=== PATIENT | male | born 1950 | race Caucasian/White ===

== ENCOUNTER 2016-05-29 08:11 | Inpatient (IN) | payer BC ==
[2016-05-05 15:10] VITALS: BMI 35.0
--- NOTE | 2016-05-05 15:51 | PAT Medication Instructions ---
Service Date May 05, 2016. Current Home Medication List Doxycycline Hyclate (Doxycycline Hyclate), 100 MG PO BID Ibuprofen (Advil), 400 MG PO PRN Meloxicam (Mobic), 15 MG PO QAM Psyllium (Metamucil Powder), 1 PACK PO QPM Medication Instructions For Your Scheduled Surgery - Hold the following medications the morning of surgery: Doxycycline Hyclate (Doxycycline Hyclate), 100 MG PO BID Ibuprofen (Advil), 400 MG PO PRN (not told to stop by surgeon) Meloxicam (Mobic), 15 MG PO QAM (not told to stop by surgeon) - Take the following medications as scheduled the night before surgery: Psyllium (Metamucil Powder), 1 PACK PO QPM Doxycycline Hyclate (Doxycycline Hyclate), 100 MG PO BID If you have any questions please call us at [phone] or [phone] ( [place]) or [phone]
[2016-05-05 16:20] LABS: BASO % 0.5 %; BASO ABS # 0.03 K/uL (0-0.2); COMPLETE YES; HEMATOCRIT 42.3 % (42-52); IG% 0.2 %; LYMPH % 24.4 %; MEAN CELL VOLUME 91.6 fL (80-100); MEAN CORPUSCULAR HEMOGLOBIN 31.2 pg (25-34); MEAN PLATELET VOLUME 10.7 fL (7.4-10.4); MONO % 10.2 %; NEUT % 60.7 %; PLATELET COUNT 153 K/uL (130-400); RED BLOOD COUNT 4.62 M/uL (4.7-6.1); WHITE BLOOD COUNT 6.56 K/uL (4.8-10.8)
--- NOTE | 2016-05-05 16:20 | DIAGNOSTIC IMAGING REPORT ---
CHEST PREADMISSION(PA/LAT) CLINICAL HISTORY: Preoperative evaluation. COMPARISON STUDY: Chest CT December 19, 2013 FINDINGS: No pneumothorax or pleural effusion is present. There is no consolidation. There is no evidence of pulmonary edema. Cardiomediastinal silhouette is unremarkable. Linear left lower lung opacity is suggestive of atelectasis. IMPRESSION: No acute cardiopulmonary findings. Electronically signed by: Sorin Gotti M.D. 05/05/2016 4:18 PM
[2016-05-05 16:24] LABS: URINE APPEARANCE CLEAR (CLEAR); URINE BILIRUBIN NEG (NEG); URINE COLOR YELLOW; URINE NITRITE NEG (NEG); URINE SPECIFIC GRAVITY 1.026 (1.000-1.030); UROBILINOGEN NEG (NEG)
[2016-05-05 16:29] LABS: MANUAL MICROSCOPIC REQUIRED? NO; REVIEW REQ? NO
[2016-05-05 16:34] LABS: PROTHROMBIN TIME (PATIENT) 10.7 SECONDS (9.0-12.0)
[2016-05-05 16:54] LABS: BUN/CREATININE RATIO 21.7 (10-20); CALCIUM 8.8 mg/dl (8.5-10.1); CREATININE 0.95 mg/dl (0.60-1.40); POTASSIUM 4.2 mmol/L (3.5-5.1)
[2016-05-06 06:52] LABS: ESTIMATED AVERAGE GLUCOSE 105 mg/dl; HA1C FLAG Normal (Normal)
--- NOTE | 2016-05-28 09:06 | HISTORY & PHYSICAL EXAMINATION ---
DATE OF ADMISSION: 05/29/2016 CHIEF COMPLAINT: Right knee pain. HISTORY OF PRESENT ILLNESS: The patient is a 66-year-old gentleman with known osteoarthritis about his bilateral knees, right worse than left. He has had previous corticosteroid as well as viscosupplementation injections. 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 He continues to have pain and disability with activities of daily living and now desires to proceed with right total knee arthroplasty. PAST MEDICAL HISTORY: Denies. PAST SURGICAL HISTORY: Colon resection secondary to diverticulitis, hip replacement by Dr. Gold, hernia repair, hand surgery. MEDICATIONS: Doxycycline 100 mg twice daily for rosacea. ALLERGIES: No known drug allergies. SOCIAL HISTORY AND REVIEW OF SYSTEMS: Noncontributory. PHYSICAL EXAMINATION: GENERAL: Well-nourished, well-developed male who appears his stated age. HEENT: Normocephalic, atraumatic, extraocular movements intact, oropharynx pink and moist. NECK: Supple without adenopathy. LUNGS: Clear to auscultation bilaterally. HEART: Regular rate and rhythm. ABDOMEN: Soft, nontender, nondistended. EXTREMITIES: Upper extremities are within normal limits. Right knee has a varus alignment. He complains primarily of medial compartment pain. His range of motion is approximately 0-125 degrees. He has mild crepitus with range of motion. X-RAYS: X-rays were reviewed. He has a varus aligned knee. He has [id number] arthritis of the medial compartment with complete loss of joint space. There are moderate degenerative changes about the patellofemoral joint with osteophytes as well. ASSESSMENT: Right knee degenerative joint disease. PLAN: Risks versus benefits were discussed. Consent was obtained. We will proceed with right total knee arthroplasty upon preoperative workup and medical clearance. The patient's primary care physician is Dr. Kim from [facility] in [place].
[2016-05-29] VITALS (9 sets, daily range): BP systolic 120–184; BP diastolic 74–102; PULSE 76–93; TEMP 36.4–36.7; O2SAT 93–98; Ht 170.2 cm; Wt 103.6 kg
[~2016-05-29] VITALS: Ht 170.2 cm; Wt 103.6 kg
[~2016-05-29 08:11] MED LIST: ACETAMINOPHEN 500 MG TAB PO SCH; BUPIVACAINE 0.25% 30 ML VIAL ONE; BUPIVACAINE 0.5 % 5 MG/1 ML PF 10ML VIAL ONE; CEFAZOLIN 2000 MG/60 ML D5W 60 ML IV SCH; CeleBREX 200 MG CAP PO SCH; DEXAMETHASONE 4 MG TAB PO SCH; DOXY1TAB6 PO; FAMOTIDINE 20 MG TAB PO SCH; GABAPENTIN 300 MG CAP PO SCH; IBUP-1050 PO; LACTATED RINGER'S 1000ML 1,000 ML IV SCH; LACTATED RINGER'S 1000ML 500 ML IV ONE; MELO7.5T5 PO; METOCLOPRAMIDE HCL 10 MG TAB PO SCH; OXYCODONE HCL 10 MG TABCR (OXYCONTIN) PO SCH; PSYL55.43 PO; ROPIVACAINE 5MG/ML 30 ML 150 MG, BUPIVACAINE/EPINEPHR 0.5% MPF 30 ML, KETOROLAC TROMETH... INFIL SCH
--- NOTE | 2016-05-29 08:33 | History & Physical Bridge Note ---
H&P Re-Evaluation Bridge Note: I have examined the patient, reviewed the History & Physical and in the interval since the performance of the History & Physical I have noted the following changes of clinical significance: No changes noted
[2016-05-29] MEDS ORDERED: MIDAZOLAM HCL 1 MG/ML 2ML VIAL ONE ×2 (08:42→08:43)
[2016-05-29] MEDS ORDERED: FENTANYL CITRATE INJ 50 MCG/1 ML 2 ML VIAL ONE (08:43)
[2016-05-29] MEDS ORDERED: NURSING VERBAL MED ORDER ONE (08:45)
[2016-05-29] MEDS: TRANEXAMIC ACID INJ 1,000 MG in SODIUM CHLORIDE 0.9% 100ML 100 ML IV SCH ×2 (09:00→09:28)
[2016-05-29] MEDS ORDERED: ORTHO JOINT ANESTHETIC ONE (09:01)
[2016-05-29] MEDS ORDERED: LACTATED RINGER'S 1000ML 1,000 ML IV PRN (09:22)
[2016-05-29] MEDS ORDERED: ONDANSETRON INJ 2 MG/ML 2 ML VIAL IV PRN (09:30)
[2016-05-29] MEDS ORDERED: FENTANYL CITRATE INJ 50 MCG/1 ML 2 ML VIAL IV PRN (09:30)
[2016-05-29] MEDS ORDERED: PROPOFOL IV EMULSION 10 MG/ML 20 ML VIAL IV ONE (10:14)
[2016-05-29] MEDS ORDERED: POVIDONE-IODINE OP SOLN 30 ML BTL TOP ONE (11:00)
--- NOTE | 2016-05-29 11:00 | [facility] Post Operative Brief Note ---
Immediate Operative Summary Operative Date May 29, 2016. Pre-Operative Diagnosis Right Knee Degenerative Joint Disease Post-Operative Diagnosis Right Knee Degenerative Joint Disease Procedure(s) Performed Orthalign Right Total Knee Arthroplasty Cemented Surgeon Dr. Rd Peterson Commercial Decorator Surgeon(s) Mio Salcido PA-C Estimated Blood Loss 20ml Findings severe OA Specimens A. Right Knee Bone and Tissue
[2016-05-29] MEDS ORDERED: BACITRACIN 50000 UNIT VIAL IR ONE (11:04)
--- NOTE | 2016-05-29 11:30 | OPERATIVE REPORT ---
REVISED REPORT DATE OF OPERATION: 05/29/2016 PREOPERATIVE DIAGNOSIS: OrthAlign Marie total knee, right. POSTOPERATIVE DIAGNOSIS: Same. SURGEON: Dr. Peterson. SENIOR SALES OPERATIONS ANALYST: Mio Salcido PA-C. ANESTHESIA: Spinal. COMPLICATIONS: None. Following induction of adequate spinal anesthesia, the patient's right leg was prepped and draped in usual sterile manner. The limb was exsanguinated with elevation and tourniquet was inflated to 350 mmHg. Longitudinal incision was reopened. Subcutaneous tissue was sharply dissected. Electrocautery was used for hemostasis. Median parapatellar incision was made. The patella was everted and the knee was flexed. ACL and PCL were removed and a medial face of the tibia was cleared of soft tissue using a Bovie and a Avalos. The tibial alignment guide for the OrthAlign alignment jig was placed in the appropriate position. It was set for slope and varus and valgus. The proximal tibial cut was made. This bone fragment was removed. Attention was turned to the femur where a spiral pin was placed in the femoral canal at the appropriate point. The OrthAlign guide was place until the femoral cutting guide was in the appropriate position. The OrthAlign guide and pins were removed and the distal femoral cut was made. This was sized, a size 5 was chosen the size to be used. Chamfer cuts were made. The notch cut was made erring slightly laterally intentionally. The lamina extractions technician was used to expose the posterior reaches of the knee, where both medial and lateral menisci were removed. Additional bone in the lateral aspects of the tibia was removed using an oscillating saw. The trial femoral component was impacted into position. The 5 fit very nicely. A blunt Hohmann was used to present the proximal tibia into the knee and a sharp Hohmann was utilized to expose the lateral aspect of the femur. The tibial baseplate, size 4, was chosen the size to be used. A punch and a mallet was used to create the slots for the tibial fins and a drill was used for the universal baseplate stubby stem. Trial reduction was carried out and size 16 poly was chosen the size to be used. The patella was reamed, and a 36 mm patella was chosen the size to be used. The drill holes were placed. The knee was taken through full range of motion and it was found to have good collateral stability to come to full extension without hyperextension and tracked nicely. All trial components were removed. The Orthomix was injected posteriorly first and then intracapsulely throughout the joint. Pulsatile irrigation was used to thoroughly cleanse the knee. Cement was mixed and the components were cemented into position. Excess cement was removed with the knee held in extension. The patella was cemented into position. The wound was irrigated once again and treated with the dilute Betadine solution. Hemovac drain was placed. The extensor mechanism was closed using #1 Vicryl, subcutaneous tissue was closed using 0 Dexon, and the skin was closed with alton. Sterile dressing of Adaptic, 4x4s, sterile Webril and a double length Pavan was applied. The patient tolerated the procedure well. ADDENDUM PHYSICIAN SENIOR SALES OPERATIONS ANALYST: Mio Salcido PA-C. Mr. Salcido was essential in all components of the case including prepping, draping, surgical resident, wound closure and dressing application. I attest to the content of the Intraoperative Record and any orders documented therein. Any exceptions are noted below. AGUSTÍN
[2016-05-29] MEDS ORDERED: TAMSULOSIN HCL 0.4 MG CAP PO PRN (11:45)
[2016-05-29] MEDS ORDERED: MoRPHine SULFATE 2 MG/ML CARP IV PRN (11:45)
[2016-05-29] MEDS ORDERED: ALUMINUM/MAGNESIUM/SIMETH (MAALOX MAX) 30 ML UDC PO PRN (11:45)
[2016-05-29] MEDS ORDERED: METOCLOPRAMIDE HCL INJ 5 MG/ML 2 ML VIAL IV PRN (11:45)
[2016-05-29] MEDS ORDERED: ZOLPIDEM TARTRATE 5 MG TAB PO PRN (11:45)
[2016-05-29] MEDS ORDERED: MAGNESIUM HYDROXIDE SUSP 30 ML UDC PO PRN (11:45)
--- NOTE | 2016-05-29 12:03 | DIAGNOSTIC IMAGING REPORT ---
TWO VIEWS RIGHT KNEE CLINICAL HISTORY: Postoperative examination. FINDINGS: AP and crosstable lateral portable views of the right knee are obtained. A right knee arthroplasty is in near anatomic alignment. There has been undersurface remodeling of the patella. No acute fracture is seen. There are expected postoperative changes around the knee including skin clips, a surgical drain, soft tissue edema, and subcutaneous gas. IMPRESSION: Expected postoperative changes status post right knee arthroplasty. No acute fracture is seen. Electronically signed by: Salomon Donato M.D. 05/29/2016 12:01 PM Dictated Date/Time: 05/29/2016 12:01 PM
--- NOTE | 2016-05-29 12:37 | Anesthesiology Progress Note ---
Anesthesia Post Op Note Date & Time May 29, 2016 at 12:36 Vital Signs Pain Intensity: 0 Vital Signs Past 12 Hours Date Time Temp Pulse Resp B/P Pulse Ox O2 Delivery O2 Flow Rate FiO2 05/29/16 12:25 36.9 68 16 121/82 95 Nasal Cannula 2 05/29/16 12:15 36.9 67 16 127/89 95 Nasal Cannula 2 05/29/16 12:05 73 16 139/89 95 Nasal Cannula 2 05/29/16 11:55 69 16 135/86 96 Nasal Cannula 2 05/29/16 11:45 72 16 122/93 95 Nasal Cannula 2 05/29/16 11:35 36.6 74 16 133/91 94 Mask 8 05/29/16 08:49 36.7 84 18 184/102 98 Room Air 154/102 Notes Mental Status: alert / awake / arousable, participated in evaluation Nausea / Vomiting: adequately controlled Pain: adequately controlled Airway Patency, RR, SpO2: stable & adequate BP & HR: stable & adequate Hydration State: stable & adequate Neuraxial Anesthesia: was administered, sensory block is resolving Anesthetic Complications: no major complications apparent
[2016-05-29] MEDS ORDERED: MoRPHine SULFATE 4 MG/ML 1 ML CARP\\VIAL IV PRN (12:45)
[2016-05-29] MEDS ORDERED: MoRPHine SULFATE 10 MG/ML CARP/VIAL IV PRN (12:45)
[2016-05-29] MEDS: D5W AND 1/2NSS + 20MEQ KCL 1,000 ML IV SCH ×2 (14:37→23:28)
--- NOTE | 2016-05-29 14:38 | OPERATIVE REPORT ---
REVISED REPORT DATE OF OPERATION: 05/29/2016 PREOPERATIVE DIAGNOSIS: Osteoarthritis, right knee. POSTOPERATIVE DIAGNOSIS: Osteoarthritis, right knee. PROCEDURE: OrthAlign right total knee arthroplasty. SURGEON: Dr. Peterson. ANESTHESIA: Spinal. COMPLICATIONS: None. OPERATION AND FINDINGS: DESCRIPTION OF PROCEDURE: Following induction of adequate spinal anesthesia, the patient's right leg was prepped and draped in usual sterile manner. Limb was exsanguinated with an Esmarch bandage, tourniquet inflated to 300 mmHg. Longitudinal incision was made. Subcutaneous tissue was sharply dissected. Electrocautery was used for hemostasis. Median parapatellar incision was made. Patella was everted and the knee was flexed. Fat pad was removed to aid in visualization and the medial face of the tibia was cleared of soft tissue using a Bovie and a Avalos. The proximal tibial OrthAlign alignment guide was placed into position and posterior slope in varus valgus were adjusted. The guide was pinned into position and the proximal tibial cut was made. The guide was removed and attention was then turned to the femur. A Inform Direct pin was placed intramedullary at the top of the intercondylar notch. The OrthAlign computers were placed and the distal femoral cut was made through the guide that had been aligned using OrthAlign computers. The remainder of the femoral cuts were made using appropriate guide. A size 5 femur was chosen as the size to be used. A 4 tibia was chosen and the tibia was prepared for a universal tibial component and the trial reduction was carried out and a 16 poly gave good reproduction of soft tissue tension. The trials were all removed. After patella was reamed and cement was mixed after the components were obtained and the wound was irrigated and injected with pericapsular Orthomix injection. The bone ends were dried and cement was used to attach all components. Excess cement was removed. The knee was brought to extension while cement hardened and the wound was irrigated with pulsatile irrigation and finally bathed with a dilute Betadine bath. A Hemovac drain was placed and the wound was closed using #1 Vicryl and 0 Dexon, subcutaneous tissues closed using 2-0 Dexon, and skin was closed with alton. Sterile dressing of sterile Webril, and Pavan was applied. The patient tolerated the procedure well. ADDENDUM PHYSICIAN DIRECTOR OF SEARCH ENGINE MARKETING: Mio Salcido PA-C. Omari was essential in all components of the case including prepping, draping, surgical garment assembly supervisor, wound closure and dressing application. I attest to the content of the Intraoperative Record and any orders documented therein. Any exceptions are noted below. ANTHONYD
[2016-05-29] MEDS: ACETAMINOPHEN 500 MG TAB PO SCH ×2 (14:40→22:16)
[2016-05-29] MEDS: CEFAZOLIN IV 2,000 MG in DEXTROSE 5% 50ML 50 ML IV SCH (18:36)
[2016-05-29] MEDS: FERROUS GLUCONATE 324 MG TAB PO SCH (18:36)
[2016-05-29] MEDS: KETOROLAC TROMETHAMINE 30 MG/ML VIAL IV. SCH ×2 (18:37→23:27)
[2016-05-29] MEDS: DOCUSATE SODIUM 100 MG CAP PO SCH (21:16)
[2016-05-29] MEDS: ASPIRIN 81 MG ECTAB PO SCH (21:16)
[2016-05-29] MEDS: OXYCODONE HCL 10 MG TABCR (OXYCONTIN) PO SCH (21:17)
[2016-05-29] MEDS: OXYCODONE HCL IR 5 MG TAB (IMMEDIATE RELEASE) PO PRN (21:17)
[2016-05-30] VITALS (8 sets, daily range): BP systolic 112–144; BP diastolic 67–83; PULSE 69–80; TEMP 36.2–36.7; O2SAT 90–96
[2016-05-30] MEDS: CEFAZOLIN IV 2,000 MG in DEXTROSE 5% 50ML 50 ML IV SCH (02:31)
[2016-05-30] MEDS: ONDANSETRON INJ 2 MG/ML 2 ML VIAL IV PRN ×3 (02:33→12:17)
[2016-05-30] MEDS: KETOROLAC TROMETHAMINE 30 MG/ML VIAL IV. SCH ×2 (05:39→11:16)
[2016-05-30] MEDS: ACETAMINOPHEN 500 MG TAB PO SCH ×3 (05:39→22:14)
[2016-05-30 06:13] LABS: HEMATOCRIT 35.4 % (42-52); MEAN CELL VOLUME 90.8 fL (80-100); MEAN CORPUSCULAR HEMOGLOBIN 31.3 pg (25-34); MEAN CORPUSCULAR HGB CONC 34.5 g/dl (32-36); MEAN PLATELET VOLUME 10.7 fL (7.4-10.4); PLATELET COUNT 146 K/uL (130-400); WHITE BLOOD COUNT 17.44 K/uL (4.8-10.8)
[2016-05-30 06:44] LABS: BUN/CREATININE RATIO 17.8 (10-20); POTASSIUM 4.4 mmol/L (3.5-5.1)
--- NOTE | 2016-05-30 07:29 | Orthopedic Progress Note ---
Orthopedic Progress Note Date of Service May 30, 2016. Subjective Post OP Day: 1 Reports: feeling well Objective N/V intact, dressing C/D/I (Hemovac in place), toes mobile Date Time Temp Pulse Resp B/P Pulse Ox O2 Delivery O2 Flow Rate FiO2 05/30/16 03:55 36.6 75 16 112/67 90 Room Air 05/29/16 23:23 36.5 77 16 120/74 95 Room Air 05/29/16 23:15 Room Air 05/29/16 20:15 36.4 93 16 132/87 94 Room Air 05/29/16 16:22 36.6 80 16 137/88 96 Nasal Cannula 3.0 05/29/16 15:26 36.4 76 16 131/84 96 Nasal Cannula 3.0 05/29/16 15:15 97 Nasal Cannula 2.0 05/29/16 14:19 77 16 153/97 97 Nasal Cannula 2.0 05/29/16 13:50 89 16 146/89 95 Nasal Cannula 2.0 05/29/16 13:50 Nasal Cannula 2.0 05/29/16 13:30 93 Nasal Cannula 2.0 05/29/16 13:21 78 18 138/92 93 2.0 05/29/16 12:55 36.9 72 16 116/78 95 Nasal Cannula 2 05/29/16 12:40 36.9 70 16 118/80 95 Nasal Cannula 2 05/29/16 12:25 36.9 68 16 121/82 95 Nasal Cannula 2 05/29/16 12:15 36.9 67 16 127/89 95 Nasal Cannula 2 05/29/16 12:05 73 16 139/89 95 Nasal Cannula 2 05/29/16 11:55 69 16 135/86 96 Nasal Cannula 2 05/29/16 11:45 72 16 122/93 95 Nasal Cannula 2 05/29/16 11:35 36.6 74 16 133/91 94 Mask 8 05/29/16 08:49 36.7 84 18 184/102 98 Room Air 154/102 Laboratory Results 24 Hours: Test 05/30/16 05:40 Hematocrit 35.4 % Hemoglobin 12.2 g/dL Assessment & Plan Assessment: 66 yo male stable POD #1 s/p right TKA Plan: 1. Med management 2. DVT prophylaxis- ASA, TEDs, SCDs 3. PT/OT 4. D/C planning- pt interested in [place] inpt rehab as he lives alone
[2016-05-30] MEDS ORDERED: DEXAMETHASONE INJ 10 MG in SYRINGE 0 ML IV SCH (07:30)
--- NOTE | 2016-05-30 07:50 | Discharge Instructions ---
Discharge Instructions Admission Reason for Admission: Right Knee Osteoarthritis Discharge Discharge Diagnosis / Problem: Right knee arthritis Discharge Goals Goal(s): Decrease discomfort, Improve function Activity Recommendations Activity Limitations: as noted below . Instructions / Follow-Up Instructions / Follow-Up ACTIVITY RECOMMENDATIONS: SELF CARE INSTRUCTIONS AFTER TOTAL KNEE REPLACEMENT A. You may need to continue a physical therapy program after discharge from the hospital. There are several options available to you. Your doctor will assist you in selecting the best one for you. 1. An out-patient facility 2 to 3 times a week for therapy or home therapy. 2. Continue working on all exercises taught to you in the hospital. Your goals should be to increase bending of your knee to 90 degrees and beyond and to fully straighten your knee. B. You may progress at your own pace from walking with a walker or crutches to a cane; then to no assistive devices. C. Make walking a part of your daily routine. Be up as much as comfortable with rest periods throughout the day. Rest with leg elevation is very important. Use the ice wrap frequently for the first 3-4 weeks. D. There are no restrictions on activities. You may ride in a car, shop, participate in talent development analyst and all social activities. E. Wear the long elastic stockings (MARCI hose) 20 hours a day for 2 weeks after surgery. They can be removed several times a day for laundering and for a bath. F. You may shower, no tub baths until cleared by your doctor. SPECIAL CARE INSTRUCTIONS: VERY IMPORTANT TO READ AND REVIEW A. There are a few signs you need to watch for after you are home. Call [facility] if you notice any of the followin. Increased severe knee pain. Some pain is expected especially when you exercise. 2. Increased swelling in your leg or knee; pain or swelling of the calf muscle in either lower leg. 3. Any fluid drainage from the incision. 4. Shortness of breath or chest pain. B. Please call [facility] at if you have any concerns or questions about your operation or recovery. The doctor or his nurse will return your call promptly. C. You must take antibiotics before dental work, bladder, bowel or other surgery. Your doctor will provide you with a permanent care to carry describing this precaution. IMPORTANT: * REMEMBER TO TAKE ASPIRIN, 81 MG, TWICE DAILY FOR 4 WEEKS UNLESS OTHERWISE DIRECTED. THIS IS YOUR BLOOD THINNER. * HIGH RISK PATIENTS MAY BE PRESCRIBED A STRONGER BLOOD THINNER. THIS WILL BE PROVIDED AT DISCHARGE. * CALL IF INCREASED PAIN, REDNESS, DRAINAGE OR FEVER GREATER THAT 101. * WEAR MARCI HOSE 20 HOURS PER DAY FOR 2 WEEKS. Silverlon- This is a large adhesive bandage that contains silver ions. This helps your incision heal by fighting off bacteria and protecting it from the outside environment. You are permitted to shower with this dressing. This will remain on your incision for 7 days and then should be removed. Some visible blood or drainage through the dressing window is normal. If there is significant drainage or leaking noted before the 7 days notify your doctor's office immediately. Once removed, keep incision clean and dry. If there is any drainage or redness noted, please call your surgeon. FOLLOW UP VISIT: If appointment is not already scheduled: Please call [facility] to make a follow-up appointment for 2 weeks after your surgery at . Current Hospital Diet Patient's current hospital diet: Regular Diet Discharge Diet Recommended Diet: Regular Diet Procedures Procedures Performed: Orthalign Right Total Knee Arthroplasty Cemented Pending Studies Studies pending at discharge: no Laboratory Results Hemoglobin A1c Test 05/05/16 15:55 Range/Units Estimated Average Glucose 105 mg/dl Hemoglobin A1c 5.3 4.5-5.6 % Medical Emergencies . Who to Call and When: Medical Emergencies: If at any time you feel your situation is an emergency, please call 911 immediately. . Non-Emergent Contact Non-Emergency issues call your: Surgeon Call Non-Emergent contact if: temperature is above 101.5, your pain is not controlled, wound has increased drainage, wound has increased redness . "Provider Documentation" section prepared by Mio Salcido PA-C. VTE Core Measure Inpt VTE Proph given/why not?: Other Anticoagulation (ASA 81mg bid), T.E.D. Stockings, SCD's
[2016-05-30] MEDS: OXYCODONE HCL 10 MG TABCR (OXYCONTIN) PO SCH ×2 (08:11→20:32)
[2016-05-30] MEDS: ASPIRIN 81 MG ECTAB PO SCH ×2 (08:11→20:32)
[2016-05-30] MEDS: PANTOprazole SOD 40 MG TAB PO SCH (08:11)
[2016-05-30] MEDS: DOCUSATE SODIUM 100 MG CAP PO SCH ×2 (08:12→20:32)
[2016-05-30] MEDS: FERROUS GLUCONATE 324 MG TAB PO SCH ×3 (08:12→18:23)
[2016-05-30] MEDS: MULTIVITAMIN TAB PO SCH (08:12)
[2016-05-30] MEDS: OXYCODONE HCL IR 5 MG TAB (IMMEDIATE RELEASE) PO PRN (18:23)
[2016-05-30] MEDS: CeleBREX 200 MG CAP PO SCH (20:32)
[2016-05-31] MEDS: ACETAMINOPHEN 500 MG TAB PO SCH (05:42)
[2016-05-31 07:05] VITALS: BP 147/90; PULSE 69; TEMP 36.6; O2SAT 97
[2016-05-31] MEDS: OXYCODONE HCL IR 5 MG TAB (IMMEDIATE RELEASE) PO PRN ×2 (07:47→13:34)
[2016-05-31] MEDS: OXYCODONE HCL 10 MG TABCR (OXYCONTIN) PO SCH (08:29)
[2016-05-31] MEDS: FERROUS GLUCONATE 324 MG TAB PO SCH ×2 (08:29→10:39)
[2016-05-31] MEDS: MULTIVITAMIN TAB PO SCH (08:30)
[2016-05-31] MEDS: PANTOprazole SOD 40 MG TAB PO SCH (08:31)
[2016-05-31] MEDS: DOCUSATE SODIUM 100 MG CAP PO SCH (09:03)
[2016-05-31] MEDS: ASPIRIN 81 MG ECTAB PO SCH (09:04)
[2016-05-31] MEDS: CeleBREX 200 MG CAP PO SCH (09:04)
[2016-05-31] MEDS: ONDANSETRON INJ 2 MG/ML 2 ML VIAL IV PRN (10:13)
--- NOTE | 2016-05-31 10:31 | Orthopedic Progress Note ---
Orthopedic Progress Note Date of Service May 31, 2016. Subjective Post OP Day: 2 Reports: feeling well, pain controlled w PO medications, Denies: SOB, calf pain , chest pain, complaints, light headedness, nausea / vomiting Objective calves soft nontender, N/V intact, capillary refill less than 2 sec., dressing C /D/I, A&O x3, toes mobile Date Time Temp Pulse Resp B/P Pulse Ox O2 Delivery O2 Flow Rate FiO2 05/31/16 07:45 Room Air 05/31/16 07:05 36.6 69 16 147/90 97 Room Air 05/30/16 23:30 Room Air 05/30/16 23:00 36.6 77 18 126/77 96 Room Air 05/30/16 19:19 36.7 80 18 137/77 95 Room Air 05/30/16 15:32 36.5 77 17 132/82 94 Room Air 05/30/16 11:24 36.4 80 20 115/75 95 05/30/16 11:15 Room Air 05/30/16 11:04 69 95 Assessment & Plan Assessment: 66 yo male stable POD #2 s/p right TKA Plan: 1. Med management 2. DVT prophylaxis- ASA, TEDs, SCDs 3. PT/OT 4. D/C planning- Home with home health. [place] rehab stay was denied. Inhouse Planning Pain Management: Celebrex, Oxycontin, PO Tylenol, Oxy IR DVT Prophylaxis: TEDs, SCDs, ASA Discharge Planning Discharge Planning: home with home health Pain Management: Celebrex, Oxycontin, PO Tylenol, Oxy IR DVT Prophylaxis: TEDs, ASA
[2016-05-31] MEDS ORDERED: ASPEC81 PO (10:36)
[2016-05-31] MEDS ORDERED: OXYSR10 PO (10:36)
[2016-05-31] MEDS ORDERED: RXC5 PO (10:36)
[2016-05-31] MEDS ORDERED: CLB200 PO (10:36)
[2016-05-31] MEDS ORDERED: ACET-1138 PO (10:36)
[2016-05-31] MEDS ORDERED: ONDA8TAB6 PO (10:36)
[2016-05-31 10:57] VITALS: BP 147/90; PULSE 69; TEMP 36.6; O2SAT 97
--- NOTE | 2016-06-11 13:59 | DISCHARGE SUMMARY ---
CHIEF COMPLAINT: Right knee pain. Please see complete history and physical examination. HOSPITAL COURSE: The patient underwent right total knee arthroplasty without complication. He tolerated the procedure well and was discharged to the recovery room in stable condition. His postoperative course was relatively uneventful. His postoperative pain was reasonably well controlled with a combination of spinal anesthesia, intraoperative joint injection, IV, and oral pain medications. He was started on aspirin for DVT prophylaxis. He also utilized MARCI stockings and SCDs for additional prophylaxis. His H\T\H was stable and did not require transfusion. His surgical drain was discontinued by postoperative day 2, surgical dressing will remain in place for approximately 7 days postoperative. He tolerated postoperative physical therapy reasonably well. He was ambulating and bending his knee appropriately. He was discharged home on postoperative day 2. He will continue his physical therapy at home. He will continue his aspirin for DVT prophylaxis and follow up in our office in approximately 10-14 days for his initial postop evaluation.
== END 2016-05-31 14:02 | disposition home health service (06) | DRG 470 ==
LOC: ENRESERVTM → ENRESERVDT → C.ACU 08:11 → C.3E 09:15
PROC: 0SRC0J9 Replacement of Right Knee Joint with Synthetic Substitute, Cemented, Open Approach (ICD-10-PCS; principal; 2016-05-29 10:15)
DX: M17.11 Unilateral primary osteoarthritis, right knee (principal); L71.9 Rosacea, unspecified; Z96.649 Presence of unspecified artificial hip joint; Z87.19 Personal history of other diseases of the digestive system; Z90.49 Acquired absence of other specified parts of digestive tract; Z79.2 Long term (current) use of antibiotics

== ENCOUNTER 2017-02-13 23:19 | Emergency (ER) | payer BC, OTHER ==
[~2017-02-13] VITALS: Ht 170.2 cm; Wt 108.0 kg
[~2017-02-13 23:19] MED LIST changes: +ACET-1138 PO; -ACETAMINOPHEN 500 MG TAB PO SCH; +ASPEC81 PO; -BUPIVACAINE 0.25% 30 ML VIAL ONE; -BUPIVACAINE 0.5 % 5 MG/1 ML PF 10ML VIAL ONE; -CEFAZOLIN 2000 MG/60 ML D5W 60 ML IV SCH; +CLB200 PO; -CeleBREX 200 MG CAP PO SCH; -DEXAMETHASONE 4 MG TAB PO SCH; -FAMOTIDINE 20 MG TAB PO SCH; -GABAPENTIN 300 MG CAP PO SCH; -IBUP-1050 PO; -LACTATED RINGER'S 1000ML 1,000 ML IV SCH; -LACTATED RINGER'S 1000ML 500 ML IV ONE; -MELO7.5T5 PO; -METOCLOPRAMIDE HCL 10 MG TAB PO SCH; -OXYCODONE HCL 10 MG TABCR (OXYCONTIN) PO SCH; +OXYSR10 PO; -ROPIVACAINE 5MG/ML 30 ML 150 MG, BUPIVACAINE/EPINEPHR 0.5% MPF 30 ML, KETOROLAC TROMETH... INFIL SCH; +RXC5 PO
[2017-02-13 23:24] VITALS: TEMP 36.5; Ht 170.2 cm; Wt 108.0 kg
[2017-02-13] MEDS ORDERED: ONDANSETRON INJ 2 MG/ML 2 ML VIAL IV STA (23:29)
[2017-02-13] MEDS ORDERED: SODIUM CHLORIDE 0.9% 1000ML 1,000 ML IV STA (23:29)
[2017-02-13] MEDS: MoRPHine SULFATE 4 MG/ML 1 ML CARP\\VIAL IV PRN (23:44)
[2017-02-13 23:54] LABS: BASO % 0.1 %; BASO ABS # 0.01 K/uL (0-0.2); COMPLETE YES; EOS % 0.1 %; HEMATOCRIT 50.4 % (42-52); IG% 0.2 %; LYMPH % 5.3 %; LYMPH ABS # 0.67 K/uL (1.2-3.4); MEAN CELL VOLUME 90.8 fL (80-100); MEAN CORPUSCULAR HGB CONC 34.1 g/dl (32-36); MEAN PLATELET VOLUME 10.6 fL (7.4-10.4); MONO % 4.3 %; PLATELET COUNT 207 K/uL (130-400); RED BLOOD COUNT 5.55 M/uL (4.7-6.1); WHITE BLOOD COUNT 12.65 K/uL (4.8-10.8)
--- NOTE | 2017-02-13 23:54 | EMERGENCY ROOM VISIT NOTE ---
History Report prepared by Kevon: Titus Garcia Under the Supervision of: Dr. Mark Sibley D.O. First contact with patient: 23:26 Chief Complaint: ABDOMINAL PAIN Stated Complaint: STOMACH PAIN - POSSIBLE KIDNEY STONE History of Present Illness The patient is a 66 year old male who presents to the Emergency Room with complaints of constant lower abdominal that started at 1700. He rates his pain as a 9/10 in severity. The patient states that he has been nauseated and dry heaving. He reports that he has been experiencing shortness of breath, which he admits that he is currently experiencing laying down. He reports that he has been experiencing chills and diaphoresis. The patient states that his current symptoms are similar to his history of kidney stones. He reports that he took over the counter nausea medication for. The patient states that he was bending over sawing wood today and is unsure if he pulled a muscle or developed a hernia. He admits that he has been taking Doxycycline for rosacea. The patient admits to a history of diverticulitis and colon resection. denies radiation of pain, hematuria, dysuria, back pain, and vomiting. Source of History: patient Onset: 1700 Position: abdomen Symptom Intensity: 9/10 Timing: constant Associated Symptoms: + chills, + diaphoresis, + SOB, + nausea, No vomiting, No back pain Review of Systems See HPI for pertinent positives & negatives. A total of 10 systems reviewed and were otherwise negative. Past Medical & Surgical Medical Problems: (1) Arthroscopy of knee joint (2) Colon resection (3) Degenerative arthritis of right knee (4) Diverticulitis (5) Kidney stent (6) Kidney stone (7) Lithotripsy (8) Tonsillectomy Family History Patient reports no known family medical history. Social History Smoking Status: Never Smoker Marital Status: in relationship Housing Status: lives with significant other Occupation Status: employed Current/Historical Medications Scheduled Ciprofloxacin Hcl (Cipro), 500 MG PO BID Doxycycline Hyclate (Doxycycline Hyclate), 100 MG PO BID Metronidazole (Flagyl), 500 MG PO TID Ondasetron Odt (Zofran Odt), 4 MG SL Q6H Scheduled PRN Acetaminophen (Tylenol), 500-1,000 MG PO DIRECTED PRN for Pain Celecoxib (CeleBREX), 200 MG PO BID PRN for Pain Oxycodone Immediate Rel Tab (Roxicodone Ir), 1-2 TAB PO Q4H PRN for Severe Pain Allergies Coded Allergies: Chlorhexidine (Verified Allergy, Unknown, RASH, 02/13/17) Physical Exam Vital Signs Date Time Temp Pulse Resp B/P (MAP) Pulse Ox O2 Delivery O2 Flow Rate FiO2 02/14/17 02:19 89 18 159/97 97 02/14/17 00:14 88 02/13/17 23:24 36.5 96 22 162/106 97 Room Air Physical Exam GENERAL: Patient is awake, alert, and in no acute distress. Patient is resting comfortably and appears moderately anxious and uncomfortable EYES: The conjunctivae are clear. The pupils are round and reactive. EARS, NOSE, MOUTH AND THROAT: The nose is without any evidence of any deformity. Mucous membranes are moist tongue is midline NECK: The neck is nontender and supple. RESPIRATORY: Normal respiratory effort is noted there is no evidence of wheezing rhonchi or rales CARDIOVASCULAR: Regular rate and rhythm noted there no murmurs rubs or gallops normal S1 normal S2 GASTROINTESTINAL: The abdomen is soft. Bowel sounds are present in all quadrants. Moderately distended. Diffusely tender. Significantly tender to both lower quadrants upon palpation. BACK: No midline tenderness or or step-off noted range of motion in flexion extension as well as rotation no signs of muscle spasm noted MUSCULOSKELETAL/EXTREMITIES: There is no evidence of gross deformity full range of motion is noted in the hips and shoulders SKIN: There is no obvious evidence of any rash. There are no petechiae, pallor or cyanosis noted. NEUROLOGIC: Patient is awake alert and oriented x3 strength is symmetric patellar reflexes are 2+ bilaterally Medical Decision & Procedures ER Provider Diagnostic Interpretation: Radiology results as stated below per my review and interpretation: CT the abdomen and pelvis was obtained in the emergency department. The report was reviewed. Preliminary Findings Only See Final Report For Complete Findings CT ABDOMEN & PELVIS Without Contrast: Wall thickening and adjacent mesenteric edema involving the loops of small bowel in the right abdomen suggestive of nonspecific enteritis which may be due to infectious, inflammatory or other causes. Recommend clinical correlation. Scattered small ascites. No evidence of small bowel obstruction, pneumatosis or free air. Nonobstructive right renal calculus. No hydronephrosis or ureteral calculus. Colonic diverticula without evidence of acute diverticulitis. Incidental findings: Postsurgical changes in the left lower abdomen and pelvis. Total left hip arthroplasty with associated artifact. Radiologist: Ailyn Delgado MD Study ready at 00:06 and initial results transmitted at 00:35 CHEST XRAY Poor inspiration noted. No free air. No definite infiltrate. No change from . Laboratory Results 02/13/17 23:40 Red Blood Count 5.55, Mean Corpuscular Volume 90.8, Mean Corpuscular Hemoglobin 31.0, Mean Corpuscular Hemoglobin Concent 34.1, Mean Platelet Volume 10.6, Neutrophils (%) (Auto) 90.0, Lymphocytes (%) (Auto) 5.3, Monocytes (%) (Auto) 4.3, Eosinophils (%) (Auto) 0.1, Basophils (%) (Auto) 0.1, Neutrophils # (Auto) 11.39, Lymphocytes # (Auto) 0.67, Monocytes # (Auto) 0.54, Eosinophils # (Auto) 0.01, Basophils # (Auto) 0.01 02/13/17 23:40 Test 02/13/17 23:40 White Blood Count 12.65 K/uL (4.8-10.8) Red Blood Count 5.55 M/uL (4.7-6.1) Hemoglobin 17.2 g/dL (14.0-18.0) Hematocrit 50.4 % (42-52) Mean Corpuscular Volume 90.8 fL (80-100) Mean Corpuscular Hemoglobin 31.0 pg (25-34) Mean Corpuscular Hemoglobin Concent 34.1 g/dl (32-36) Platelet Count 207 K/uL (130-400) Mean Platelet Volume 10.6 fL (7.4-10.4) Neutrophils (%) (Auto) 90.0 % Lymphocytes (%) (Auto) 5.3 % Monocytes (%) (Auto) 4.3 % Eosinophils (%) (Auto) 0.1 % Basophils (%) (Auto) 0.1 % Neutrophils # (Auto) 11.39 K/uL (1.4-6.5) Lymphocytes # (Auto) 0.67 K/uL (1.2-3.4) Monocytes # (Auto) 0.54 K/uL (0.11-0.59) Eosinophils # (Auto) 0.01 K/uL (0-0.5) Basophils # (Auto) 0.01 K/uL (0-0.2) RDW Standard Deviation 44.7 fL (36.4-46.3) RDW Coefficient of Variation 13.5 % (11.5-14.5) Immature Granulocyte % (Auto) 0.2 % Immature Granulocyte # (Auto) 0.03 K/uL (0.00-0.02) Prothrombin Time 10.6 SECONDS (9.0-12.0) Prothromb Time International Ratio 1.0 (0.9-1.1) Activated Partial Thromboplast Time 27.6 SECONDS (21.0-31.0) Partial Thromboplastin Ratio 1.1 Urine Color YELLOW Urine Appearance CLEAR (CLEAR) Urine pH 5.0 (4.5-7.5) Urine Specific [place] 1.026 (1.000-1.030) Urine Protein NEG (NEG) Urine Glucose (UA) NEG (NEG) Urine Ketones 2+ (NEG) Urine Occult Blood NEG (NEG) Urine Nitrite NEG (NEG) Urine Bilirubin NEG (NEG) Urine Urobilinogen NEG (NEG) Urine Leukocyte Esterase NEG (NEG) Anion Gap 6.0 mmol/L (3-11) Est Creatinine Clear Calc Drug Dose 72.9 ml/min Estimated GFR () 73.6 Estimated GFR (Non- 63.5 BUN/Creatinine Ratio 13.9 (10-20) Calcium Level 9.4 mg/dl (8.5-10.1) Total Bilirubin 1.2 mg/dl (0.2-1) Direct Bilirubin 0.2 mg/dl (0-0.2) Aspartate Amino Transf (AST/SGOT) 15 U/L (15-37) Alanine Aminotransferase (ALT/SGPT) 21 U/L (12-78) Alkaline Phosphatase 84 U/L (45-117) Total Protein 7.9 gm/dl (6.4-8.2) Albumin 3.9 gm/dl (3.4-5.0) Lipase 127 U/L (73-393) Laboratory results per my review. Medications Administered Medications (Trade) Dose Ordered Sig/Aury Route Start Time Stop Time Status Last Admin Dose Admin Sodium Chloride 1,000 ml @ 999 mls/hr Q1H1M STAT IV 02/13/17 23:29 02/14/17 00:29 DC 02/13/17 23:29 999 MLS/HR Ondansetron HCl (Zofran Inj) 4 mg NOW STAT IV 02/13/17 23:29 02/13/17 23:30 DC 02/13/17 23:42 4 MG Morphine Sulfate (MoRPHine SULFATE INJ) 4 mg Q15M PRN IV 02/13/17 23:30 02/14/17 02:50 DC 02/14/17 01:49 4 MG Ciprofloxacin (Cipro Tab) 500 mg NOW STAT PO 02/14/17 01:31 02/14/17 01:33 DC 02/14/17 01:50 500 MG Ciprofloxacin (Cipro 500MG Home Pack) 1 homepack UD ONCE PO 02/14/17 01:45 02/14/17 01:46 DC 02/14/17 01:45 1 HOMEPACK Metronidazole (Flagyl Tab) 500 mg NOW STAT PO 02/14/17 01:31 02/14/17 01:33 DC 02/14/17 01:49 500 MG Ondansetron HCl (ZOFRAN ODT 4MG Home Pack) 1 homepack UD ONCE PO 02/14/17 01:45 02/14/17 01:46 DC 02/14/17 01:45 1 HOMEPACK Oxycodone HCl (Roxicodone Immediate Rel 5MG Home Pack) 1 homepack UD ONCE PO 02/14/17 01:45 02/14/17 01:46 DC 02/14/17 01:45 1 HOMEPACK ED Course 2327: The patient was evaluated in room A10. A complete history and physical examination were performed. 2329: Ordered Zofran Injection 4 mg IV, Sodium Chloride 1000 ml @ 999 mls/hr IV. 2330: Ordered Morphine Sulfate 4 mg IV. 0131: Ordered Cipro Tab 500 mg PO, Flagyl Tab 500 mg PO. 0145: Ordered Oxycodone HCl 1 homepack PO, Ondansetron HCl 1 homepack PO, Ciprofloxacin 1 homepack PO. 0154: Upon reevaluation, the patient is resting comfortably. I discussed the results and treatment plan with the patient. He verbalized agreement of the treatment plan. The patient was discharged home. Medical Decision Differential diagnosis: Etiologies such as appendicitis, diverticulitis, PUD, biliary pathology, UTI, pancreatitis, obstruction, mesenteric ischemia, aortic pathology, infections, inflammatory bowel disease, renal colic, as well as others were entertained. The patient is a 66-year-old male who presented to the emergency department for evaluation of lower abdominal pain. The patient has a history of kidney stones and thought this could be consistent with renal colic over he had significant lower abdominal tenderness to palpation. The patient was treated with IV fluids IV pain medicine and IV antiemetics. He was also started on antibiotics in the emergency department. I discussed the patient's laboratory and radiographic studies with him. At this time he does appear to have some inflammation about could be related to an enteritis versus some other cause. This reason the patient was continued on antibiotics as an outpatient. He was encouraged to continue all medications as prescribed and call his family doctor to schedule follow-up appointment. Otherwise she was encouraged to return to emergency department immediately if symptoms change worsen or the need arises. Medication Reconcilliation Current Medication List: was personally reviewed by me Blood Pressure Screening Patient's blood pressure: Elevated blood pressure Blood pressure disposition: Elevated BP felt to be situational Impression Primary Impression: Abdominal pain Additional Impression: Enteritis Scribe Attestation The scribe's documentation has been prepared under my direction and personally reviewed by me in its entirety. I confirm that the note above accurately reflects all work, treatment, procedures, and medical decision making performed by me. Departure Information Dispostion Home / Self-Care Prescriptions Ondasetron Odt (ZOFRAN ODT) 4 Mg Tab 4 MG SL Q6H for Nausea, #15 TAB Prov: Mark Sibley, DO 02/14/17 Metronidazole (FLAGYL) 500 Mg Tab 500 MG PO TID, #30 TAB Prov: Mark Sibley, DO 02/14/17 Ciprofloxacin Hcl (CIPRO) 500 Mg Tab 500 MG PO BID, #20 TAB Prov: Mark Sibley, DO 02/14/17 Oxycodone Immediate Rel Tab (ROXICODONE IR) 5 Mg Tab 1-2 TAB PO Q4H Y for Severe Pain, #24 TAB Prov: Mark Sibley, DO 02/14/17 Referrals No Doctor, Assigned (PCP) Forms HOME CARE DOCUMENTATION FORM, IMPORTANT VISIT INFORMATION Patient Instructions Abdominal Pain, My [facility] Additional Instructions Continue all medications as prescribed. Drink plenty clear liquids. Call your family to schedule a follow-up appointment. Return to the emergency department immediately if symptoms change worsen or the need arises. If you are going to use the stronger pain medication I would recommend using an over-the- counter stool softener. Continue using Motrin and Tylenol instructed for mild pain. Problem Qualifiers Primary Impression: Abdominal pain Abdominal location: lower abdomen, unspecified Qualified Codes: R10.30 - Lower abdominal pain, unspecified
[2017-02-14] MEDS ORDERED: ACET-1256 PO
[2017-02-14] MEDS ORDERED: CLB/200 PO
[2017-02-14 00:05] LABS: PARTIAL THROMBOPLASTIN RATIO 1.1; PROTHROMBIN TIME (PATIENT) 10.6 SECONDS (9.0-12.0)
[2017-02-14 00:14] LABS: BUN/CREATININE RATIO 13.9 (10-20); CALCIUM 9.4 mg/dl (8.5-10.1); CREATININE 1.2 mg/dl (0.60-1.40); POTASSIUM 4.2 mmol/L (3.5-5.1)
[2017-02-14 00:48] LABS: URINE APPEARANCE CLEAR (CLEAR); URINE BILIRUBIN NEG (NEG); URINE COLOR YELLOW; URINE NITRITE NEG (NEG); URINE SPECIFIC GRAVITY 1.026 (1.000-1.030); UROBILINOGEN NEG (NEG)
[2017-02-14 00:49] LABS: MANUAL MICROSCOPIC REQUIRED? NO; REVIEW REQ? NO
[2017-02-14] MEDS ORDERED: CIPROFLOXACIN 500 MG TAB PO STA (01:31)
[2017-02-14] MEDS ORDERED: METRONIDAZOLE 250 MG TAB PO STA (01:31)
[2017-02-14] MEDS ORDERED: OXYCODONE IR HOME PACK PO ONE (01:45)
[2017-02-14] MEDS ORDERED: ONDANSETRON HOME PACK 4MG OD TAB PO ONE (01:45)
[2017-02-14] MEDS ORDERED: CIPROFLOXACIN 500MG HOME PACK PO ONE (01:45)
[2017-02-14] MEDS: MoRPHine SULFATE 4 MG/ML 1 ML CARP\\VIAL IV PRN (01:49)
[2017-02-14] MEDS ORDERED: METR-162 PO (01:51)
[2017-02-14] MEDS ORDERED: CIPR-255 PO (01:51)
[2017-02-14] MEDS ORDERED: OXYC1TAB3 PO (01:51)
[2017-02-14] MEDS ORDERED: ONDA4TAB10 SL (01:51)
[2017-02-14 02:19] VITALS: BP 159/97; PULSE 89; O2SAT 97
--- NOTE | 2017-02-14 05:57 | DIAGNOSTIC IMAGING REPORT ---
CHEST ONE VIEW PORTABLE CLINICAL HISTORY: 66 years-old Male presenting with ABDOMINAL PAIN/GI. TECHNIQUE: Portable upright AP view of the chest was obtained. COMPARISON: 05/05/2016. FINDINGS: Cardiac silhouette top normal in size. Vague opacity in the paramediastinal right lung base suggested. Blunting of the left costophrenic angle could suggest trace effusion. No pneumothorax. Osseous structures normal. Upper abdomen normal. IMPRESSION: 1. Vague left basilar opacity, concerning for pneumonia. 2. Possible trace left pleural effusion. Electronically signed by: Atif Sparks M.D. 02/14/2017 5:56 AM Dictated Date/Time: 02/14/2017 5:55 AM
--- NOTE | 2017-02-14 06:12 | DIAGNOSTIC IMAGING REPORT ---
ABD/PELVIS NO IV OR ORAL CONT CLINICAL HISTORY: 66 years-old Male presenting with lower abd pain. TECHNIQUE: Multidetector CT of the abdomen and pelvis was performed without the use of intravenous contrast. IV contrast: None. A dose lowering technique was used consistent with the principles of ALARA (as low as reasonably achievable). COMPARISON: None. CT DOSE (mGy.cm): The estimated cumulative dose is 1145.08 mGy.cm. 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 Lung bases: Bandlike opacities and dependent groundglass at the lung bases likely atelectasis. Mild multichamber enlargement of the heart is suggested. No pericardial or pleural effusion. Liver: Congenital hypoplasia of the medial segments of the left hepatic lobe. Hepatic steatosis. Trace perihepatic free fluid. Biliary: No gross biliary ductal dilatation allowing for noncontrast technique. Normal gallbladder. Pancreas: Mild parenchymal atrophy. Spleen: Normal noncontrast appearance. Adrenal glands: Normal noncontrast appearance. Kidneys and ureters: Nonobstructing 4 mm calculus in the interpolar region of the right kidney. No hydronephrosis. Normal ureters, allowing for poor visualization of the ureterovesical junction secondary to streak artifact from the total left hip arthroplasty. Bladder: Incompletely evaluated secondary to underdistention. Pelvic organs: Prostate and seminal vesicles normal. Bowel: Anastomosis at the rectosigmoid junction with adjacent surgical clips. Reticulosis of the residual sigmoid colon status post sigmoidectomy. Scattered colonic diverticula elsewhere. Wall thickening of a segment of ileum in the right lower quadrant with adjacent perienteric inflammatory change and small amount of fluid. Normal appendix. No bowel obstruction. Small duodenal diverticulum suggested at the junction of the third and fourth portion. Peritoneal cavity: Small amount of free fluid as mentioned. No free air. Vasculature: Atherosclerosis of the normal caliber abdominal aorta. Lymph nodes: No gross lymphadenopathy allowing for noncontrast technique. Abdominal wall: Normal. Musculoskeletal: Total left hip arthroplasty. Mild degenerative change of the lower lumbar spine. IMPRESSION: 1. Findings consistent with enteritis of a segment of distal ileum in the right lower quadrant. This is most likely infectious. Normal appendix. 2. Associated small amount of ascites. 3. Postsurgical changes of sigmoidectomy with patent anastomosis. 4. Nonobstructing 4 mm right renal calculus. 5. Hepatic steatosis. Electronically signed by: Atif Sparks M.D. 02/14/2017 6:10 AM Dictated Date/Time: 02/14/2017 6:04 AM
== END 2017-02-14 02:20 | disposition home or self-care (01) ==
LOC: C.EDB 23:21 → C.EDA 02-14 02:20
DX: R10.30 Lower abdominal pain, unspecified (principal); K52.9 Noninfective gastroenteritis and colitis, unspecified; R11.0 Nausea; R06.02 Shortness of breath; Z79.899 Other long term (current) drug therapy; Z87.442 Personal history of urinary calculi; Z87.738 Personal history of other specified (corrected) congenital malformations of digestive system

== ENCOUNTER 2017-05-20 18:34 | Emergency (ER) | payer BC, MEDICARE ==
[~2017-05-20] VITALS: Ht 170.2 cm; Wt 99.2 kg
[~2017-05-20 18:34] MED LIST changes: -ACET-1138 PO; +ACET-1256 PO; -ASPEC81 PO; +CIPR-255 PO; +CLB/200 PO; -CLB200 PO; +ONDA4TAB10 SL; +OXYC-737 PO; -OXYSR10 PO; -PSYL55.43 PO; -RXC5 PO
[2017-05-20 18:41] VITALS: TEMP 36.5; Ht 170.2 cm; Wt 99.2 kg
[2017-05-20] MEDS ORDERED: MoRPHine SULFATE 4 MG/ML 1 ML CARP\\VIAL IV STA (18:52)
[2017-05-20] MEDS ORDERED: ONDANSETRON INJ 2 MG/ML 2 ML VIAL IV STA (18:52)
[2017-05-20 19:17] LABS: BASO % 0.2 %; BASO ABS # 0.02 K/uL (0-0.2); EOS ABS # 0.12 K/uL (0-0.5); HEMATOCRIT 45.1 % (42-52); HEMOGLOBIN 15.3 g/dL (14.0-18.0); IG# 0.03 K/uL (0.00-0.02); LYMPH % 9.2 %; MEAN CELL VOLUME 92.4 fL (80-100); MEAN CORPUSCULAR HEMOGLOBIN 31.4 pg (25-34); MEAN CORPUSCULAR HGB CONC 33.9 g/dl (32-36); MEAN PLATELET VOLUME 10.2 fL (7.4-10.4); MONO % 7.6 %; MONO ABS # 0.91 K/uL (0.11-0.59); NEUT % 81.7 %; NEUT ABS # 9.75 K/uL (1.4-6.5); PLATELET COUNT 150 K/uL (130-400); RED CELL DISTRIBUTION WIDTH CV 13.4 % (11.5-14.5); RED CELL DISTRIBUTION WIDTH SD 45.3 fL (36.4-46.3); WHITE BLOOD COUNT 11.93 K/uL (4.8-10.8)
[2017-05-20 19:41] LABS: ALBUMIN 3.6 gm/dl (3.4-5.0); CALCIUM 9.1 mg/dl (8.5-10.1); CREATININE 1.34 mg/dl (0.60-1.40)
[2017-05-20 19:44] LABS: TOTAL PROTEIN 7.8 gm/dl (6.4-8.2)
[2017-05-20] MEDS ORDERED: KETOROLAC TROMETHAMINE 30 MG/ML VIAL IV STA (19:59)
--- NOTE | 2017-05-20 20:11 | DIAGNOSTIC IMAGING REPORT ---
ABD/PELVIS WITHOUT FOR STONE CLINICAL HISTORY: 67 years-old Male presenting with right flank eval for stone. TECHNIQUE: Multidetector CT of the abdomen and pelvis was performed without the use of intravenous contrast. IV contrast: None. A dose lowering technique was used consistent with the principles of ALARA (as low as reasonably achievable). COMPARISON: 02/13/2017. CT DOSE (mGy.cm): The estimated cumulative dose is 1685.77 mGy.cm. 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 Extensive surgical clips in the left lower quadrant. Lung bases: Extensive bandlike consolidation and volume loss in the right lower lobe with slight architectural distortion. Minimal linear opacities in the left lower lobe. Multichamber enlargement of the heart. Coronary artery calcification. No pericardial or pleural effusion. Liver: Normal morphology. Density consistent with hepatic steatosis. Biliary: No gross biliary ductal dilatation allowing for noncontrast technique. Normal gallbladder. Pancreas: Normal noncontrast appearance. Spleen: Normal noncontrast appearance. Adrenal glands: Normal. Kidneys and ureters: Obstructing 5 mm calculus in the proximal right ureter with resultant mild right pelvocaliectasis and mild dilatation of the proximal right ureter. The right kidney is slightly enlarged in comparison to the left. Bilateral nonspecific perinephric fat stranding, right greater than left. No additional renal calculi are evident. Left pelviectasis. Left ureter normal. Bladder: Incompletely evaluated secondary to underdistention. Pelvic organs: Prostate enlargement likely secondary to benign prostatic hyperplasia. Bowel: Postsurgical changes of distal sigmoidectomy with a colocolonic anastomosis at the upper rectum. Diverticulosis of the residual proximal sigmoid colon. The appendix is normal. Previously noted distal ileitis has resolved. No bowel obstruction. Duodenal diverticulum noted in the third portion. Peritoneal cavity: No free fluid or intraperitoneal gas. Lymph nodes: No gross lymphadenopathy allowing for noncontrast technique. Vasculature: Atherosclerosis of the normal caliber abdominal aorta. Abdominal wall: Left fat-containing inguinal hernia. Umbilical hernia also noted. Musculoskeletal: Total left hip arthroplasty without gross evidence of hardware complication. Degenerative changes of the spine. IMPRESSION: 1. Obstructing 5 mm calculus in the proximal right ureter with resultant mild right hydroureteronephrosis. No additional renal calculus. 2. Postsurgical changes of distal sigmoidectomy with a patent colocolonic anastomosis in the upper rectum. 3. Diverticulosis without evidence of diverticulitis. 4. Extensive atelectasis in the right lower lobe with less extensive atelectasis in the left lower lobe. 5. Hepatic steatosis. Electronically signed by: Atif Sparks M.D. 05/20/2017 8:10 PM Dictated Date/Time: 05/20/2017 8:03 PM
[2017-05-20] MEDS ORDERED: OXYC-90 PO (20:41)
[2017-05-20] MEDS ORDERED: OXYCODONE IR HOME PACK PO ONE (20:45)
[2017-05-20 20:56] VITALS: BP 158/96; PULSE 88; O2SAT 93
--- NOTE | 2017-05-20 21:09 | EMERGENCY ROOM VISIT NOTE ---
History Report prepared by Kevon: Jaleesa Chisholm Under the Supervision of: Dr. Kieran Edge M.D. First contact with patient: 18:47 Chief Complaint: FLANK PAIN Stated Complaint: LOWER BACK PAIN History of Present Illness The patient is a 67 year old male who presents to the Emergency Room with complaints of persistent right flank pain starting 1-2 days ago. The pain wraps around to his right lower abdomen. He is nauseous, but denies any vomiting. He is unsure if he has had a fever. He denies any urinary symptoms. He has a history of kidney stones. He had a lithotripsy previously. He denies any history of hypertension. Source of History: patient Onset: 1-2 days ago Position: other (right flank) Quality: other (pain) Timing: other (persistent) Associated Symptoms: + nausea, + abdominal pain, No vomiting, No urinary symptoms Review of Systems See HPI for pertinent positives & negatives. A total of 10 systems reviewed and were otherwise negative. Past Medical & Surgical Medical Problems: (1) Arthroscopy of knee joint (2) Colon resection (3) Degenerative arthritis of right knee (4) Diverticulitis (5) Kidney stent (6) Kidney stone (7) Lithotripsy (8) Tonsillectomy Family History Patient reports no known family medical history. Social History Smoking Status: Never Smoker Marital Status: in relationship Housing Status: lives with significant other Occupation Status: employed Current/Historical Medications Scheduled Ciprofloxacin Hcl (Cipro), 500 MG PO BID Doxycycline Hyclate (Doxycycline Hyclate), 100 MG PO BID Ondasetron Odt (Zofran Odt), 4 MG SL Q6H Scheduled PRN Acetaminophen (Tylenol), 500-1,000 MG PO DIRECTED PRN for Pain Celecoxib (CeleBREX), 200 MG PO BID PRN for Pain Oxycodone Immediate Rel Tab (Roxicodone Ir), 1-2 TAB PO Q4H PRN for Severe Pain Oxycodone Ir (Roxicodone Ir), 5 MG PO Q4H PRN for Pain Allergies Coded Allergies: Chlorhexidine (Verified Allergy, Unknown, RASH, 02/13/17) Physical Exam Vital Signs Date Time Temp Pulse Resp B/P (MAP) Pulse Ox O2 Delivery O2 Flow Rate FiO2 05/20/17 20:56 88 16 158/96 93 05/20/17 20:30 88 16 166/104 93 Room Air 05/20/17 19:49 84 05/20/17 19:25 87 18 149/107 98 Room Air 05/20/17 18:41 36.5 80 18 212/127 95 Room Air Physical Exam Constitutional: Vital signs reviewed. Eyes: Pupils are equal round reactive to light. Conjunctiva are noninjected. ENT: Pharynx is clear without erythema or exudate. Mucous membranes are moist. Neck supple without meningeal signs. Respiratory: Clear to auscultation bilaterally. Breath sounds are equal bilaterally. Cardiovascular: Regular rate and rhythm. No rubs or gallops. GI: Soft, nondistended and nontender. Bowel sounds are present. Musculoskeletal: No peripheral edema. No CVA tenderness. Integumentary: No cyanosis. Neurological: The patient is awake and alert. No focal deficits. Psychiatric: Normal affect. Medical Decision & Procedures ER Provider Diagnostic Interpretation: Radiology results as stated below per my review and the radiologist's interpretation: ABD/PELVIS WITHOUT FOR STONE CLINICAL HISTORY: 67 years-old Male presenting with right flank eval for stone. TECHNIQUE: Multidetector CT of the abdomen and pelvis was performed without the use of intravenous contrast. IV contrast: None. A dose lowering technique was used consistent with the principles of ALARA (as low as reasonably achievable). COMPARISON: 02/13/2017. CT DOSE (mGy.cm): The estimated cumulative dose is 1685.77 mGy.cm. FINDINGS: Power Shovel Mechanic topogram: Total left hip arthroplasty. Extensive surgical clips in the left lower quadrant. Lung bases: Extensive bandlike consolidation and volume loss in the right lower lobe with slight architectural distortion. Minimal linear opacities in the left lower lobe. Multichamber enlargement of the heart. Coronary artery calcification. No pericardial or pleural effusion. Liver: Normal morphology. Density consistent with hepatic steatosis. Biliary: No gross biliary ductal dilatation allowing for noncontrast technique. Normal gallbladder. Pancreas: Normal noncontrast appearance. Spleen: Normal noncontrast appearance. Adrenal glands: Normal. Kidneys and ureters: Obstructing 5 mm calculus in the proximal right ureter with resultant mild right pelvocaliectasis and mild dilatation of the proximal right ureter. The right kidney is slightly enlarged in comparison to the left. Bilateral nonspecific perinephric fat stranding, right greater than left. No additional renal calculi are evident. Left pelviectasis. Left ureter normal. Bladder: Incompletely evaluated secondary to underdistention. Pelvic organs: Prostate enlargement likely secondary to benign prostatic hyperplasia. Bowel: Postsurgical changes of distal sigmoidectomy with a colocolonic anastomosis at the upper rectum. Diverticulosis of the residual proximal sigmoid colon. The appendix is normal. Previously noted distal ileitis has resolved. No bowel obstruction. Duodenal diverticulum noted in the third portion. Peritoneal cavity: No free fluid or intraperitoneal gas. Lymph nodes: No gross lymphadenopathy allowing for noncontrast technique. Vasculature: Atherosclerosis of the normal caliber abdominal aorta. Abdominal wall: Left fat-containing inguinal hernia. Umbilical hernia also noted. Musculoskeletal: Total left hip arthroplasty without gross evidence of hardware complication. Degenerative changes of the spine. IMPRESSION: 1. Obstructing 5 mm calculus in the proximal right ureter with resultant mild right hydroureteronephrosis. No additional renal calculus. 2. Postsurgical changes of distal sigmoidectomy with a patent colocolonic anastomosis in the upper rectum. 3. Diverticulosis without evidence of diverticulitis. 4. Extensive atelectasis in the right lower lobe with less extensive atelectasis in the left lower lobe. 5. Hepatic steatosis. Electronically signed by: Atif Sparks M.D. 05/20/2017 8:10 PM Dictated Date/Time: 05/20/2017 8:03 PM Laboratory Results 05/20/17 19:02 Red Blood Count 4.88, Mean Corpuscular Volume 92.4, Mean Corpuscular Hemoglobin 31.4, Mean Corpuscular Hemoglobin Concent 33.9, Mean Platelet Volume 10.2, Neutrophils (%) (Auto) 81.7, Lymphocytes (%) (Auto) 9.2, Monocytes (%) (Auto) 7.6, Eosinophils (%) (Auto) 1.0, Basophils (%) (Auto) 0.2, Neutrophils # (Auto) 9.75, Lymphocytes # (Auto) 1.10, Monocytes # (Auto) 0.91, Eosinophils # (Auto) 0.12, Basophils # (Auto) 0.02 05/20/17 19:02 Test 05/20/17 19:00 05/20/17 19:02 Urine Color YELLOW Urine Appearance CLEAR (CLEAR) Urine pH 5.5 (4.5-7.5) Urine Specific Nunez 1.020 (1.000-1.030) Urine Protein NEG (NEG) Urine Glucose (UA) NEG (NEG) Urine Ketones TRACE (NEG) Urine Occult Blood 3+ (NEG) Urine Nitrite NEG (NEG) Urine Bilirubin NEG (NEG) Urine Urobilinogen NEG (NEG) Urine Leukocyte Esterase NEG (NEG) Urine WBC (Auto) 1-5 /hpf (0-5) Urine RBC (Auto) 0-4 /hpf (0-4) Urine Hyaline Casts (Auto) 0 /lpf (0-5) Urine Epithelial Cells (Auto) 5-10 /lpf (0-5) Urine Bacteria (Auto) NEG (NEG) White Blood Count 11.93 K/uL (4.8-10.8) Red Blood Count 4.88 M/uL (4.7-6.1) Hemoglobin 15.3 g/dL (14.0-18.0) Hematocrit 45.1 % (42-52) Mean Corpuscular Volume 92.4 fL (80-100) Mean Corpuscular Hemoglobin 31.4 pg (25-34) Mean Corpuscular Hemoglobin Concent 33.9 g/dl (32-36) Platelet Count 150 K/uL (130-400) Mean Platelet Volume 10.2 fL (7.4-10.4) Neutrophils (%) (Auto) 81.7 % Lymphocytes (%) (Auto) 9.2 % Monocytes (%) (Auto) 7.6 % Eosinophils (%) (Auto) 1.0 % Basophils (%) (Auto) 0.2 % Neutrophils # (Auto) 9.75 K/uL (1.4-6.5) Lymphocytes # (Auto) 1.10 K/uL (1.2-3.4) Monocytes # (Auto) 0.91 K/uL (0.11-0.59) Eosinophils # (Auto) 0.12 K/uL (0-0.5) Basophils # (Auto) 0.02 K/uL (0-0.2) RDW Standard Deviation 45.3 fL (36.4-46.3) RDW Coefficient of Variation 13.4 % (11.5-14.5) Immature Granulocyte % (Auto) 0.3 % Immature Granulocyte # (Auto) 0.03 K/uL (0.00-0.02) Anion Gap 5.0 mmol/L (3-11) Est Creatinine Clear Calc Drug Dose 61.7 ml/min Estimated GFR () 64.0 Estimated GFR (Non- 55.2 BUN/Creatinine Ratio 13.6 (10-20) Calcium Level 9.1 mg/dl (8.5-10.1) Total Bilirubin 0.8 mg/dl (0.2-1) Direct Bilirubin 0.2 mg/dl (0-0.2) Aspartate Amino Transf (AST/SGOT) 12 U/L (15-37) Alanine Aminotransferase (ALT/SGPT) 20 U/L (12-78) Alkaline Phosphatase 74 U/L (45-117) Total Protein 7.8 gm/dl (6.4-8.2) Albumin 3.6 gm/dl (3.4-5.0) Lipase 139 U/L (73-393) Laboratory results as reviewed by me. Medications Administered Medications (Trade) Dose Ordered Sig/Aury Route Start Time Stop Time Status Last Admin Dose Admin Morphine Sulfate (MoRPHine SULFATE INJ) 4 mg ONE STAT IV 05/20/17 18:52 05/20/17 18:53 DC 05/20/17 19:10 4 MG Ondansetron HCl (Zofran Inj) 4 mg NOW STAT IV 05/20/17 18:52 05/20/17 18:53 DC 05/20/17 19:10 4 MG Ketorolac Tromethamine (Toradol Inj) 10 mg NOW STAT IV 05/20/17 19:59 05/20/17 20:00 DC 05/20/17 20:29 10 MG Oxycodone HCl (Roxicodone Immediate Rel 5MG Home Pack) 1 homepack UD ONCE PO 05/20/17 20:45 05/20/17 20:46 DC 05/20/17 20:54 1 HOMEPACK ED Course 1848: The patient was evaluated in room A11B. A complete history and physical exam was performed. 1851: Zofran Inj 4 mg IV, Morphine Sulfate 4 mg IV. 1957: I reevaluated the patient. He feels better. His blood pressure is improved. I discussed the test results with him. 1958: Toradol Inj 10 mg IV. 2016: I reevaluated the patient. His pain is starting to return. He has not yet gotten the Toradol. 2036: Upon reevaluation, the patient appeared to have improvement of his symptoms. I discussed tonight's findings with him. He verbalized agreement of the treatment plan. He was discharged home. 2044: Oxycodone HCl 1 homepack PO. Medical Decision This is a 67-year-old male who presents with right flank pain. Differential diagnosis includes ureteral stone, hydronephrosis, strain, UTI, appendicitis, colitis. I did perform a limited focused review of portions of the patient's old chart on the electronic medical record. The patient was seen here February 13 for abdominal pain and possible kidney stone. He had a CT which showed enteritis. I did evaluate the patient as noted above. IV access was established. I did treat the patient with IV morphine and Zofran. I did order and personally review the patient's urinalysis as described above. I did order and review the patient's blood work as noted in the electronic medical record. I did order a CT of the abdomen and pelvis. I did review the images myself as well as the radiology report as described above. I did reassess the patient. He feels much better and his pressures improved. He still had some pain and so I did give him Toradol 10 mg IV. On reassessment the patient is feeling better. He did feel well enough for discharge. I did give him an oxycodone home pack. He was also given prescription for oxycodone. He was given precautions regarding this medication. He will follow up with his urologist. [place] Drug Monitoring Program Search Results: patient reviewed within database, no issues identified Medication Reconcilliation Current Medication List: was personally reviewed by me Blood Pressure Screening Patient's blood pressure: Elevated blood pressure Blood pressure disposition: Referred to PCP Impression Primary Impression: Renal colic Scribe Attestation The scribe's documentation has been prepared under my direct and personally reviewed by me in its entirety. I confirm that the note above accurately reflects all work, treatment, procedures, and medical decision making performed by me. Departure Information Dispostion Home / Self-Care Prescriptions Oxycodone Ir (Roxicodone Ir) 5 Mg Tab 5 MG PO Q4H Y for Pain, #20 TAB Prov: Kieran Edge M.D. 05/20/17 Referrals No Doctor, Assigned (PCP) Forms HOME CARE DOCUMENTATION FORM, IMPORTANT VISIT INFORMATION Patient Instructions Kidney Stones Expectant Therapy, My [facility] Additional Instructions You have been examined and treated today on an emergency basis only. This is not a substitute for, or an effort to provide, complete comprehensive medical care. It is impossible to recognize and treat all injuries or illnesses in a single emergency department visit. It is therefore important that you follow up closely with your urologist. Call as soon as possible for an appointment. Return for worsening symptoms or if you develop fever, vomiting, or any other concerning symptoms.
[2017-05-22] MEDS ORDERED: OXYC-90 PO (18:00)
== END 2017-05-20 20:57 | disposition home or self-care (01) ==
LOC: C.EDB 18:35 → C.EDA 20:57
DX: N20.1 Calculus of ureter (principal); N23 Unspecified renal colic; K76.0 Fatty (change of) liver, not elsewhere classified; J98.11 Atelectasis; K57.90 Diverticulosis of intestine, part unspecified, without perforation or abscess without bleeding; R10.9 Unspecified abdominal pain

== ENCOUNTER 2017-05-22 14:06 | Emergency (ER) | payer MEDICARE ==
[~2017-05-22] VITALS: Ht 170.2 cm; Wt 106.5 kg
[~2017-05-22 14:06] MED LIST changes: -OXYC-737 PO; +OXYC1TAB3 PO
[2017-05-22 14:10] VITALS: TEMP 36.6; Ht 170.2 cm; Wt 106.5 kg
[2017-05-22] MEDS ORDERED: SODIUM CHLORIDE 0.9% 1000ML 1,000 ML IV STA (15:41)
[2017-05-22] MEDS ORDERED: PRLSR20 PO (15:50)
--- NOTE | 2017-05-22 16:01 | EMERGENCY ROOM VISIT NOTE ---
History First contact with patient: 15:34 Chief Complaint: ABNORMAL LABS Stated Complaint: KIDNEY STONE, ABNORMAL LABS - REF BY History of Present Illness The patient is a 67 year old male who presents to the Emergency Room with complaints of abnormal labs. Patient was seen in this emergency department 2 days ago, diagnosed with a right-sided ureteral stone. He does not currently follow with the urologist. The patient was seen at his PCP office today for follow-up, stating that he was having worsening nausea/vomiting today, was given Zofran which did improve his symptoms. He was later called and told to come to the ER for "abnormal kidney function labs." Patient states he is actually feeling much better, his pain has been well controlled with Percocet, and his nausea vomiting are much improved after taking the Zofran. He denies any difficulty with urination, hematuria, or decrease in urination. He denies any fevers or chills. He denies any other symptoms of headache, back pain, chest pain, shortness of breath, diarrhea, or rash. Review of Systems A complete 10 point review of systems was reviewed with the patient with pertinent positives and negatives as per history of present illness. All else were negative. Past Medical/Surgical History Medical Problems: (1) Arthroscopy of knee joint (2) Colon resection (3) Degenerative arthritis of right knee (4) Diverticulitis (5) Kidney stent (6) Kidney stone (7) Lithotripsy (8) Tonsillectomy Family History Patient reports no known family medical history. Social History Smoking Status: Never Smoker Marital Status: in relationship Housing Status: lives with significant other Occupation Status: employed Current/Historical Medications Scheduled Doxycycline Hyclate (Doxycycline Hyclate), 100 MG PO BID Omeprazole (Prilosec), 20 MG PO DAILY Scheduled PRN Oxycodone Ir (Roxicodone Ir), 1-2 TAB PO Q6H PRN for Severe Pain Allergies Reviewed in chart Physical Exam Vital Signs Date Time Temp Pulse Resp B/P (MAP) Pulse Ox O2 Delivery O2 Flow Rate FiO2 05/22/17 17:38 75 18 143/108 93 Room Air 05/22/17 16:30 77 18 149/92 96 Room Air 05/22/17 16:24 69 05/22/17 14:10 36.6 93 18 184/120 94 Room Air Physical Exam CONSTITUTIONAL: Pleasant and cooperative. No acute distress. Well appearing and well nourished. HEENT: Normocephalic, atraumatic. Pupils equal, round and reactive to light, EOMI. TMs normal. Pharynx normal. Moist mucous membranes. NECK: Supple, full active range of motion without discomfort. RESPIRATORY: Clear to auscultation bilaterally with no wheezing, crackles, rhonchi or stridor. Equal expansion bilaterally. CARDIOVASCULAR: Regular rate and rhythm with no murmurs, rubs or gallops. Normal peripheral perfusion. No edema. GASTROINTESTINAL: Mild generalized right-sided tenderness to palpation. Soft, nondistended. No palpable masses or HSM. Bowel sounds present in all quadrants. No CVA tenderness. MUSCULOSKELETAL: Full range of motion of all joints without discomfort. INTEGUMENTARY: No rash or other significant dermatologic conditions noted. NEUROLOGIC: Alert and oriented X 4 with normal affect. Cranial nerves II-XII grossly intact. No focal neurologic deficits noted. Medical Decision & Procedures ER Provider Diagnostic Interpretation: KUB CLINICAL HISTORY: known right stone, eval progression COMPARISON STUDY: CT of the abdomen and pelvis May 20, 2017. FINDINGS: There has been minimal migration of the 5 mm proximal right ureteral calculus since CT of May 20, 2017. No additional urinary calculi are identified. Pelvic calcifications reflect phleboliths. There are surgical clips and a left hip arthroplasty. Bowel gas pattern is normal. IMPRESSION: Minimal distal migration of the 5 mm proximal right ureteral calculus located at the upper L4 level. Laboratory Results 05/22/17 16:20 Red Blood Count 5.08, Mean Corpuscular Volume 92.3, Mean Corpuscular Hemoglobin 31.5, Mean Corpuscular Hemoglobin Concent 34.1, Mean Platelet Volume 10.4, Neutrophils (%) (Auto) 74.7, Lymphocytes (%) (Auto) 13.4, Monocytes (%) (Auto) 11.0, Eosinophils (%) (Auto) 0.6, Basophils (%) (Auto) 0.1, Neutrophils # (Auto ) 7.14, Lymphocytes # (Auto) 1.28, Monocytes # (Auto) 1.05, Eosinophils # (Auto ) 0.06, Basophils # (Auto) 0.01 05/22/17 16:20 Test 05/22/17 16:07 05/22/17 16:20 Urine Color YELLOW Urine Appearance CLEAR (CLEAR) Urine pH 5.5 (4.5-7.5) Urine Specific [place] 1.027 (1.000-1.030) Urine Protein 1+ (NEG) Urine Glucose (UA) NEG (NEG) Urine Ketones TRACE (NEG) Urine Occult Blood NEG (NEG) Urine Nitrite NEG (NEG) Urine Bilirubin NEG (NEG) Urine Urobilinogen NEG (NEG) Urine Leukocyte Esterase NEG (NEG) Urine WBC (Auto) 1-5 /hpf (0-5) Urine RBC (Auto) 0-4 /hpf (0-4) Urine Hyaline Casts (Auto) 0 /lpf (0-5) Urine Epithelial Cells (Auto) 0-5 /lpf (0-5) Urine Bacteria (Auto) NEG (NEG) White Blood Count 9.56 K/uL (4.8-10.8) Red Blood Count 5.08 M/uL (4.7-6.1) Hemoglobin 16.0 g/dL (14.0-18.0) Hematocrit 46.9 % (42-52) Mean Corpuscular Volume 92.3 fL (80-100) Mean Corpuscular Hemoglobin 31.5 pg (25-34) Mean Corpuscular Hemoglobin Concent 34.1 g/dl (32-36) Platelet Count 172 K/uL (130-400) Mean Platelet Volume 10.4 fL (7.4-10.4) Neutrophils (%) (Auto) 74.7 % Lymphocytes (%) (Auto) 13.4 % Monocytes (%) (Auto) 11.0 % Eosinophils (%) (Auto) 0.6 % Basophils (%) (Auto) 0.1 % Neutrophils # (Auto) 7.14 K/uL (1.4-6.5) Lymphocytes # (Auto) 1.28 K/uL (1.2-3.4) Monocytes # (Auto) 1.05 K/uL (0.11-0.59) Eosinophils # (Auto) 0.06 K/uL (0-0.5) Basophils # (Auto) 0.01 K/uL (0-0.2) RDW Standard Deviation 43.5 fL (36.4-46.3) RDW Coefficient of Variation 12.9 % (11.5-14.5) Immature Granulocyte % (Auto) 0.2 % Immature Granulocyte # (Auto) 0.02 K/uL (0.00-0.02) Prothrombin Time 10.4 SECONDS (9.0-12.0) Prothromb Time International Ratio 1.0 (0.9-1.1) Activated Partial Thromboplast Time 26.9 SECONDS (21.0-31.0) Partial Thromboplastin Ratio 1.0 Anion Gap 4.0 mmol/L (3-11) Est Creatinine Clear Calc Drug Dose 51.3 ml/min Estimated GFR () 49.0 Estimated GFR (Non- 42.3 BUN/Creatinine Ratio 12.5 (10-20) Lactic Acid Level 0.8 mmol/L (0.4-2.0) Calcium Level 9.5 mg/dl (8.5-10.1) Total Bilirubin 0.9 mg/dl (0.2-1) Direct Bilirubin 0.1 mg/dl (0-0.2) Aspartate Amino Transf (AST/SGOT) 17 U/L (15-37) Alanine Aminotransferase (ALT/SGPT) 20 U/L (12-78) Alkaline Phosphatase 71 U/L (45-117) Total Protein 8.6 gm/dl (6.4-8.2) Albumin 3.7 gm/dl (3.4-5.0) Lipase 283 U/L (73-393) Medications Administered Medications (Trade) Dose Ordered Sig/Aury Route Start Time Stop Time Status Last Admin Dose Admin Sodium Chloride 1,000 ml @ 999 mls/hr Q1H1M STAT IV 05/22/17 15:41 05/22/17 16:41 DC 05/22/17 16:32 999 MLS/HR Ibuprofen (Motrin Tab) 600 mg NOW STAT PO 05/22/17 17:13 05/22/17 17:14 DC 05/22/17 17:37 600 MG Medical Decision CC: Patient presenting with complaint of abnormal labs Interpretation of Labs: No leukocytosis (improved from previous), no anemia, no significant electrolyte abnormalities, BUN/creatinine are elevated but does not appear to be worsening from his labs morning, normal liver enzymes and lipase. Lactic acid normal. Coagulation factors within normal limits. UA shows slight ketones, otherwise negative. Differential Diagnosis: Includes, but not limited to acute kidney injury, obstructing ureteral stone, renal colic, dehydration, electrolyte abnormality, among others. Medication Reconciliation: I attest that I have personally reviewed the patient' s current medication list. Vital signs review: I reviewed the patient's vital signs and interpret them as follows: T: Afebrile; BP: Hypertensive; HR: Within normal limits; RR: Within normal limits; Pulse Ox: Within normal limits on room air. Blood pressure screening: The patient was found to have an elevated blood pressure and was referred to their primary doctor for recheck and further treatment. Summary: Patient was evaluated at bedside, history and physical exam performed. Patient is alert and oriented, in no acute distress, resting calmly in the stretcher. Patient has mild tenderness on the right, but no CVA tenderness, no rebound tenderness. Patient notes a history of kidney stones in the past, stating the last one was a couple years ago, and required a stent placement and lithotripsy. He states he does not currently follow with urologist. Patient does state the lab abnormalities were his kidney function. Review of the patient's chart reveals his ED visit from 2 days ago, noting a 5 mm proximal right-sided ureteral stone Orders were placed at bedside for labs, UA, IV fluids for hydration, KUB to evaluate for the position of stone. Records from the visit today were requested. These were reviewed, noting marked increase in the patient's creatinine of 1.7, previously 1.34 on labs two days ago. Patient discussed with Dr. Ha, who agrees with my assessment and plan. Labs reviewed as above, stable BUN/creatinine when compared to outpatient labs, not significantly worse from baseline and I do not feel the patient warrants admission. Patient was given IV fluid bolus. KUB shows minimal movement of the right ureteral stone. Patient reassessed multiple times throughout ED stay, he continues to feel well , reports his pain is well-controlled and his nausea has been improved since he took some Zofran. He has not required any doses of pain or nausea medication in the ED and he is tolerating oral fluids. I discussed all results with the patient and plan for discharge home, and instructed close follow-up with his PCP to have his blood work rechecked early next week. I also discussed follow-up with urology, the patient states he does have an appointment on 06/01, but he is concerned and wants an appointment sooner. 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 I discussed return precautions with the patient should his symptoms worsen in any way, he verbalized understanding of all discharge instructions. The patient was discharged home in stable condition and ambulatory. Medication Reconcilliation Current Medication List: was personally reviewed by me Blood Pressure Screening Patient's blood pressure: Elevated blood pressure Blood pressure disposition: Referred to PCP Impression Primary Impression: Right ureteral calculus Additional Impressions: Nausea and vomiting Elevated serum creatinine Departure Information Dispostion Home / Self-Care Condition GOOD Prescriptions Oxycodone Ir (Roxicodone Ir) 5 Mg Tab 1-2 TAB PO Q6H Y for Severe Pain, #12 TAB Prov: Taty Restrepo CRNP 05/22/17 Referrals No Doctor, Assigned (PCP) Zena Raygoza MD Patient Instructions ED [facility] Additional Instructions You have been treated in the Emergency Department today for a Kidney Stone ( Nephrolithiasis). For pain control, you can use the following [id number] medicines (if >12 yo): - Regular strength (325mg/tab) Tylenol (acetaminophen) 2 tabs every 4-6 hours as needed. Do not exceed 10 tablets in a 24 hour period. Avoid taking more than 2000 mg of Tylenol per day. This includes any other sources of acetaminophen you may take on a regular basis. - Regular strength (200 mg/tab) Advil (ibuprofen) 3 tabs every 6-8 hours as needed. Do not exceed a dose of 2400 mg per day. You have been prescribed oxycodone to be used for SEVERE pain. This is a narcotic medication. You cannot drive or consume alcohol while on this medicine. This medicine should only be used for pain that cannot be controlled with khvq-oii-[id number] pain medicines. Use your prescribed Zofran as needed for any nausea or vomiting. Take as prescribed. Take your prescribed Flomax 0.4 mg to be taken ONCE daily. This medicine has been prescribed as it can help relax the smooth muscles of the urinary tract increasing transit time of the kidney stone. You have been provided the contact information for the on-call Urologist. You should contact the Urologist's office on Thursday to establish a follow-up appointment from today's Emergency Department visit, or you can keep your current schedule appointment on the . You should follow-up with your primary care provider on Thursday to have your kidney function blood work rechecked. Return to the Emergency Department if you develop severe pain that is not manageable with your medications, fevers/chills, persistent vomiting and you are unable to keep anything down, large amounts of blood in your urine, if you are unable to urinate for more than 8 hours, or for any other concerns. Work Instructions Return To Work: 2 days Problem Qualifiers Additional Impressions: Nausea and vomiting Vomiting type: unspecified Vomiting Intractability: non-intractable Qualified Codes: R11.2 - Nausea with vomiting, unspecified
--- NOTE | 2017-05-22 16:23 | DIAGNOSTIC IMAGING REPORT ---
KUB CLINICAL HISTORY: known right stone, eval progression COMPARISON STUDY: CT of the abdomen and pelvis May 20, 2017. FINDINGS: There has been minimal migration of the 5 mm proximal right ureteral calculus since CT of May 20, 2017. No additional urinary calculi are identified. Pelvic calcifications reflect phleboliths. There are surgical clips and a left hip arthroplasty. Bowel gas pattern is normal. IMPRESSION: Minimal distal migration of the 5 mm proximal right ureteral calculus located at the upper L4 level. Electronically signed by: Sorin Gotti M.D. 05/22/2017 4:22 PM Dictated Date/Time: 05/22/2017 4:19 PM
[2017-05-22 16:34] LABS: BASO % 0.1 %; BASO ABS # 0.01 K/uL (0-0.2); EOS % 0.6 %; EOS ABS # 0.06 K/uL (0-0.5); HEMATOCRIT 46.9 % (42-52); IG# 0.02 K/uL (0.00-0.02); LYMPH % 13.4 %; LYMPH ABS # 1.28 K/uL (1.2-3.4); MEAN CELL VOLUME 92.3 fL (80-100); MEAN CORPUSCULAR HEMOGLOBIN 31.5 pg (25-34); MEAN CORPUSCULAR HGB CONC 34.1 g/dl (32-36); MEAN PLATELET VOLUME 10.4 fL (7.4-10.4); MONO ABS # 1.05 K/uL (0.11-0.59); NEUT % 74.7 %; NEUT ABS # 7.14 K/uL (1.4-6.5); PLATELET COUNT 172 K/uL (130-400); RED CELL DISTRIBUTION WIDTH CV 12.9 % (11.5-14.5); RED CELL DISTRIBUTION WIDTH SD 43.5 fL (36.4-46.3); WHITE BLOOD COUNT 9.56 K/uL (4.8-10.8)
[2017-05-22 16:43] LABS: PTT PATIENT 26.9 SECONDS (21.0-31.0)
[2017-05-22 16:51] LABS: ALBUMIN 3.7 gm/dl (3.4-5.0); CALCIUM 9.5 mg/dl (8.5-10.1); CREATININE 1.67 mg/dl (0.60-1.40); POTASSIUM 4.1 mmol/L (3.5-5.1)
[2017-05-22 17:08] LABS: TOTAL PROTEIN 8.6 gm/dl (6.4-8.2)
[2017-05-22] MEDS ORDERED: IBUPROFEN 600 MG TAB PO STA (17:13)
[2017-05-22 17:38] VITALS: BP 143/108; PULSE 75; O2SAT 93
[2017-05-22] MEDS ORDERED: OXYC1TAB3 PO (18:00)
== END 2017-05-22 18:13 | disposition home or self-care (01) ==
LOC: C.EDB 14:10
DX: N20.1 Calculus of ureter (principal); R11.2 Nausea with vomiting, unspecified; R79.89 Other specified abnormal findings of blood chemistry; Z87.442 Personal history of urinary calculi; Z90.49 Acquired absence of other specified parts of digestive tract; Z90.89 Acquired absence of other organs; Z98.890 Other specified postprocedural states

== ENCOUNTER 2019-11-27 21:19 | Observation (INO) ==
[2019-11-27] MEDS ORDERED: ACETAMINOPHEN 325 MG TAB PO STA (21:48)
--- NOTE | 2019-11-27 21:54 | Emergency Department Note ---
History of Present Illness General Chief complaint: Infection Stated complaint: POSSIBLE INFECTION IN RIGHT LEG Time Seen by Provider: 11/27/19 21:43 Source: patient History of Present Illness Provider complaint: Right leg pain Onset (ago): day(s) Location: lower extremity and right Radiation: non-radiation Severity: moderate Pain Consistency: + constant Maximum Pain Intensity: 7 Quality: + burning and + sharp Relieved By: + none Associated symptoms: + fever/chills; no chest pain, no cough, no headaches, no nausea/vomiting and no shortness of breath This is a 69-year-old male who presents with right leg pain starting yesterday. He noticed he had some redness to that area and he had a burning and sharp pain to the right lower leg. He rates his pain a 7 out of 10 in severity. No modifying factors. It is associated with a fever of 101 at home. He denies any chest pain, shortness of breath, abdominal pain, vomiting, cough or cold symptoms or known COVID-19 exposure. He does state that he had chills throughout the day. He states that he had a cut to the right stevenson which she has been putting Neosporin on. He denies any history of diabetes or immunocompromise. Home Medications Home Medications Medication Instructions Recorded Confirmed Type atorvastatin 10 mg PO DAILY 11/27/19 11/27/19 History omeprazole magnesium [Prilosec OTC] 20 mg PO QAM 11/27/19 11/27/19 History Allergies Allergy/AdvReac Type Severity Reaction Status Date / Time chlorhexidine Allergy Unknown RASH Verified 11/27/19 22:29 Past Med/Surg History Medical History Degenerative arthritis of right knee Social History Feels Safe at Home: Yes Smoking Status: Never smoker Review of Systems See HPI for pertinent positives & negatives. and A total of 10 systems reviewed and were otherwise negative Physical Exam Vital Signs Vital Signs - 24 hr 11/27/19 21:23 11/27/19 22:27 Temperature 37.9 C H Temperature Source Oral Pulse Rate 117 H Respiratory Rate 16 Respiratory Effort / Characteristics Non-Labored Spontaneous Respiratory Depth Normal Blood Pressure Position Sitting Pulse Oximetry 95 94 Oxygen Delivery Method Room Air Room Air Sepsis Recent Fever Within 48 Hours No Sepsis New/Unexplained Change in Mental Status No Sepsis Action Taken by Nursing No Action Required Constitutional: Vital signs reviewed. Eyes: Pupils are equal round reactive to light. Conjunctiva are noninjected. ENT: Pharynx is clear without erythema or exudate. Mucous membranes are moist. Neck supple without meningeal signs. Respiratory: Clear to auscultation bilaterally. Breath sounds are equal bilaterally. Cardiovascular: Regular rate and rhythm. No rubs or gallops. GI: Soft, nondistended and nontender. Bowel sounds are present. Musculoskeletal: Localized swelling, erythema and increased warmth to the right stevenson with a superficial laceration measuring 1 cm with Neosporin on it. Normal distal pulses. No calf tenderness. Integumentary: No cyanosis. or jaundice. Neurological: The patient is awake and alert. No focal deficits. Psychiatric: Normal affect. Not anxious appearing. Course Administered Medications Discontinued Medications Acetaminophen (Tylenol) 650 mg PO NOW STA Stop: 11/27/19 21:49 Last Admin: 11/27/19 22:27 Dose: 650 mg Documented by: [id number] Medical Decision Making Differential Diagnosis Cellulitis, MRSA, bacteremia, sepsis, Sirs Medical Records Attestation: I reviewed the patient's medical records. I did perform a limited focused review of portions of the patient's old chart on the electronic medical record. The patient has had no recent pertinent visits to this hospital. Home Medications Current Medication List: was personally reviewed by me Laboratory Data Attestation: I reviewed the patient's lab results. Result diagrams: 11/27/19 22:06 11/27/19 22:06 Lab Results 11/27/19 11/27/19 11/27/19 Range/Units 22:06 22:06 22:06 WBC 15.20 H (4.8-10.8) K/uL RBC 4.68 L (4.7-6.1) M/uL Hgb 14.2 (14.0-18.0) g/dL Hct 43.2 (42-52) % MCV 92.3 (80-100) fL MCH 30.3 (25-34) pg MCHC 32.9 (32-36) g/dL RDW Std Deviation 44.8 (36.4-46.3) fL RDW Coeff of Javi 13.3 (11.5-14.5) % Plt Count 178 (130-400) K/uL MPV 10.8 H (7.4-10.4) fL Immature Gran % (Auto) 0.3 % Neut % (Auto) 84.8 % Lymph % (Auto) 7.0 % [place] % (Auto) 7.1 % Eos % (Auto) 0.7 % Baso % (Auto) 0.1 % Neut # (Auto) 12.89 H (1.4-6.5) K/uL Lymph # (Auto) 1.07 L (1.2-3.4) K/uL [place] # (Auto) 1.08 H (0.11-0.59) K/uL Eos # (Auto) 0.10 (0-0.5) K/uL Baso # (Auto) 0.02 (0-0.2) K/uL Immature Gran # (Auto) 0.04 H (0.00-0.02) K/uL PT (9.0-12.0) Seconds INR (0.9-1.1) APTT (21.0-31.0) Seconds PTT Ratio Sodium 138 (136-145) mmol/L Potassium 3.7 (3.5-5.1) mmol/L Chloride 104 (98-107) mmol/L Carbon Dioxide 29 (21-32) mmol/L Anion Gap 5.0 (3-11) BUN 14 (7-18) mg/dl Creatinine 1.18 (0.6-1.4) mg/dl Est Cr Clr Drug Dosing 71.7 ml/min Est GFR ( Amer) 73.6 Est GFR (Non-Af Amer) 63.5 BUN/Creatinine Ratio 12.0 (10-20) Glucose 111 H (70-99) mg/dl Lactate 1.0 (0.4-2.0) mmol/L Calcium 8.8 (8.5-10.1) mg/dl Magnesium 1.6 L (1.8-2.4) mg/dl Total Bilirubin 0.9 (0.2-1) mg/dl AST 12 L (15-37) U/L ALT 20 (12-78) U/L Alkaline Phosphatase 72 (45-117) U/L Total Protein 7.7 (6.4-8.2) gm/dl Albumin 3.6 (3.4-5.0) gm/dl Globulin 4.1 H (2.5-4.0) gm/dl Albumin/Globulin Ratio 0.9 (0.9-2) 11/27/19 Range/Units 22:06 WBC (4.8-10.8) K/uL RBC (4.7-6.1) M/uL Hgb (14.0-18.0) g/dL Hct (42-52) % MCV (80-100) fL MCH (25-34) pg MCHC (32-36) g/dL RDW Std Deviation (36.4-46.3) fL RDW Coeff of Javi (11.5-14.5) % Plt Count (130-400) K/uL MPV (7.4-10.4) fL Immature Gran % (Auto) % Neut % (Auto) % Lymph % (Auto) % [place] % (Auto) % Eos % (Auto) % Baso % (Auto) % Neut # (Auto) (1.4-6.5) K/uL Lymph # (Auto) (1.2-3.4) K/uL [place] # (Auto) (0.11-0.59) K/uL Eos # (Auto) (0-0.5) K/uL Baso # (Auto) (0-0.2) K/uL Immature Gran # (Auto) (0.00-0.02) K/uL PT 11.3 (9.0-12.0) Seconds INR 1.1 (0.9-1.1) APTT 27.7 (21.0-31.0) Seconds PTT Ratio 1.0 Sodium (136-145) mmol/L Potassium (3.5-5.1) mmol/L Chloride (98-107) mmol/L Carbon Dioxide (21-32) mmol/L Anion Gap (3-11) BUN (7-18) mg/dl Creatinine (0.6-1.4) mg/dl Est Cr Clr Drug Dosing ml/min Est GFR ( Amer) Est GFR (Non-Af Amer) BUN/Creatinine Ratio (10-20) Glucose (70-99) mg/dl Lactate (0.4-2.0) mmol/L Calcium (8.5-10.1) mg/dl Magnesium (1.8-2.4) mg/dl Total Bilirubin (0.2-1) mg/dl AST (15-37) U/L ALT (12-78) U/L Alkaline Phosphatase (45-117) U/L Total Protein (6.4-8.2) gm/dl Albumin (3.4-5.0) gm/dl Globulin (2.5-4.0) gm/dl Albumin/Globulin Ratio (0.9-2) Blood Pressure Blood Pressure Findings: Elevated blood pressure Blood Pressure Disposition: Referred to patients primary care provider MDM Narrative I did evaluate the patient as noted above. He is presenting with fever and cellulitis to the right leg. He was given Tylenol here. His fever came down but he was still complaining of leg pain. IV access was established. I did treat him with morphine 2 mg IV and Zofran 4 mg IV. Blood cultures were ordered. I did order and review the patient's blood work as noted in the electronic medical record. His white count is over 15,000. Electrolytes are unremarkable. Lactic acid is not elevated. On reassessment he is still tachycardic. He does not meet sepsis criteria but he does meet sirs criteria. I did recommend hospitalization for IV antibiotics and further care. He was agreeable with this. I did treat him with IV vancomycin. I did discuss case with the hospitalist and case coordinator. Impression & Plan Cellulitis of leg, right, SIRS (systemic inflammatory response syndrome) Discharge Plan Visit Data Chief Complaint: Infection Stated Complaint: POSSIBLE INFECTION IN RIGHT LEG ED Provider: Kieran Edge Discharge Problem: Cellulitis of leg, right, SIRS (systemic inflammatory response syndrome) Patient Disposition: Being Evaluated by Hospitalist Forms Stand Alone Forms: [email or web address] Prescriptions Prescriptions: No Action atorvastatin 10 mg tablet 10 mg PO DAILY RF: 0 omeprazole magnesium [Prilosec OTC] 20 mg Tablet,Delayed Release (Dr/Ec) 20 mg PO QAM RF: 0 Referrals Referrals: PCP,NO [Primary Care Provider] -
[2019-11-27 22:36] LABS: Basophils # (auto) 0.02 K/uL (0-0.2); Basophils % (auto) 0.1 %; Eosinophils % (auto) 0.7 %; Hematocrit (blood only) 43.2 % (42-52); Hemoglobin 14.2 g/dL (14.0-18.0); Immature Granulocytes # (auto) 0.04 K/uL (0.00-0.02); Immature Granulocytes % (auto) 0.3 %; Lymphocytes # (auto) 1.07 K/uL (1.2-3.4); Mean Corpuscular Hemoglobin 30.3 pg (25-34); Mean Corpuscular Hgb Conc 32.9 g/dL (32-36); Mean Corpuscular Volume 92.3 fL (80-100); Mean Platelet Volume 10.8 fL (7.4-10.4); Monocytes # (auto) 1.08 K/uL (0.11-0.59); Monocytes % (auto) 7.1 %; Neutrophils # (auto) 12.89 K/uL (1.4-6.5); Neutrophils % (auto) 84.8 %; Platelet Count 178 K/uL (130-400); RDW Coefficient of Variation 13.3 % (11.5-14.5); RDW Standard Deviation 44.8 fL (36.4-46.3); Red Blood Count 4.68 M/uL (4.7-6.1)
[2019-11-27 22:46] LABS: INR 1.1 (0.9-1.1); Partial Thromboplastin Time 27.7 Seconds (21.0-31.0); Prothrombin Time 11.3 Seconds (9.0-12.0)
[2019-11-27 22:54] LABS: Albumin Level 3.6 gm/dl (3.4-5.0); Calcium 8.8 mg/dl (8.5-10.1); Creatinine Clr Calc Pharmacy 71.7 ml/min; Est GFR (African American) 73.6; Est GFR (Non-African American) 63.5; Magnesium 1.6 mg/dl (1.8-2.4); Potassium 3.7 mmol/L (3.5-5.1)
[2019-11-27 22:57] LABS: Albumin Globulin Ratio 0.9 (0.9-2); Bilirubin,Total 0.9 mg/dl (0.2-1); Globulin 4.1 gm/dl (2.5-4.0); Total Protein 7.7 gm/dl (6.4-8.2)
[2019-11-27] MEDS ORDERED: VANCOMYCIN HCL 2,250 MG in SODIUM CHLORIDE 0.9% 500 ML IV ONE (22:59)
[2019-11-27] MEDS ORDERED: MoRPHine SULFATE 2 MG/ML CARP IV STA (22:59)
[2019-11-27] MEDS ORDERED: VANCOMYCIN CONSULT ACTIVE PRN (22:59)
[2019-11-27] MEDS ORDERED: ONDANSETRON INJ 2 MG/ML 2 ML VIAL IV STA (22:59)
[2019-11-28] MEDS ORDERED: POLYETHYLENE (MIRALAX) 17 GM PACK PO PRN (00:19)
[2019-11-28] MEDS ORDERED: OXYCODONE HCL IR 5 MG TAB (IMMEDIATE RELEASE) PO PRN (00:19)
[2019-11-28] MEDS ORDERED: ONDANSETRON INJ 2 MG/ML 2 ML VIAL IV PRN (00:19)
--- NOTE | 2019-11-28 00:37 | History and Physical Report ---
DATE OF ADMISSION: 11/27/2019 CHIEF COMPLAINT: Right lower extremity cellulitis. HISTORY OF PRESENT ILLNESS: This is a 69-year-old male with past medical history significant for hyperlipidemia, GERD, history of diverticulosis of colon, rosacea, who presents with right lower extremity swelling and erythema. Patient says since last Thursday he noticed some erythema and swelling in the right lower extremity which got progressively worse. There is a scratch superficial wound seen on the right stevenson.But today pain got severe and he also developed fever which prompted him to come to the ER. He is having a spiking temperature and elevated white count meeting Sirs criteria. He was given vancomycin in the ER. Currently resting comfortably and hemodynamically stable. He says he was able to walk on the leg. Denies any cough. No chest pain, no shortness of breath, no loss of sense of smell or taste. No headache, no blurred visions, no earache, no runny nose, no sore throat, no dysphagia. Appetite is okay. The patient says he had 4 days of diarrhea since last Thursday, but that got resolved. No abdominal pain now. Denies any blood in the stools. Normal bladder movements. Denies any tick bites. ALLERGIES: No known drug allergies. PAST MEDICAL HISTORY: As mentioned above. PAST SURGICAL HISTORY: Colonoscopy, cystourethroscopy with lithotripsy, multiple cystoscopies, right knee replacement, S1 nerve root injection, right knee meniscectomy, partial colectomy with anastomosis, tonsillectomy, adenoidectomy, repair of inguinal hernia, left total hip replacement. MEDICATIONS: Lipitor 10 mg p.o. daily and omeprazole 20 mg p.o. a.m. FAMILY HISTORY: Significant for father had alcoholism, heart disorder; paternal grandfather had fatal NV at age 49 and also psoriasis; mother had CRC. SOCIAL HISTORY: . No smoking, no alcohol, no drug use. REVIEW OF SYSTEMS: As per HPI. Rest of the review of symptoms negative. PHYSICAL EXAMINATION: GENERAL: The patient is of moderate build, not in acute distress. VITAL SIGNS: Temperature T-max 37.9, pulse 103, respiratory rate 16, blood pressure 145/98, oxygen 94% on room air. HEENT: No pallor, no icterus. NECK: No JVD, no neck masses, no carotid bruit. Oral mucosa dry. CARDIOVASCULAR: S1, S2 heard, regular rate and rhythm, no murmur, no gallop. RESPIRATORY SYSTEM: Normal AP diameter. No accessory muscle use. No wheezing, no crackles. ABDOMEN: Soft, bowel sounds present, nontender. No distention. CENTRAL NERVOUS SYSTEM: Cranial nerves II-XII grossly intact. Nonfocal. EXTREMITIES: Right lower extremity is mildly swollen, erythematous and warm to touch. LABORATORY DATA: WBC 15.2, hemoglobin 14.2, hematocrit 43.2, platelets 178. PT 11.3, INR 1.1, APTT 27.7. Sodium 138, potassium 3.7, chloride 104, bicarbonate 29, BUN 14, creatinine 1.18, serum glucose 111, lactate 1, calcium 8.8, magnesium 1.6, total bilirubin 0.9, AST 12, ALT 20, alkaline phosphatase 72. ASSESSMENT AND PLAN: This is a 69-year-old male who presents with right lower extremity cellulitis. 1. Right lower extremity cellulitis. The patient has no history of diabetes. Received vancomycin in the ER. We will continue with Rocephin. We will also rule out deep venous thrombosis and monitor in the medical floor. Gentle fluids. 2. Hyperlipidemia, continue statin. 3. Gastroesophageal reflux disease, continue Prilosec. 4. Deep venous thrombosis prophylaxis, on Lovenox. DISPOSITION: Admit to medical floor. Expect to discharge home and follow with family doctor. AGUSTÍN
[2019-11-28] MEDS ORDERED: cefTRIAXone SODIUM 2,000 MG in DEXTROSE 5% 50 ML IV SCH (01:00)
[2019-11-28] MEDS: SODIUM CHLORIDE 0.9% 1000ML 1,000 ML IV SCH ×2 (01:10→13:59)
[2019-11-28] MEDS: MAGNESIUM SULFATE / D5W 1 GM/100 ML BAG IV SCH ×2 (01:49→03:34)
--- NOTE | 2019-11-28 06:40 | Ultrasound Report ---
US venous doppler LE RT CLINICAL HISTORY: rt lower extremity swelling and tenderness. dvt? COMPARISON STUDY: No previous studies for comparison. FINDINGS: Real-time and color flow Doppler imaging were performed. Flow was seen within the femoral, popliteal and calf veins with no intraluminal thrombus demonstrated. The saphenous vein is patent. IMPRESSION: No evidence of deep venous thrombosis. Right inguinal adenopathy possibly reactive ACT 112: Negative or not required by law. The above report was generated using voice recognition software. It may contain grammatical, syntax or spelling errors. Electronically signed by: Damion Linares M.D. 11/28/2019 6:38 AM
[2019-11-28] MEDS: PANTOprazole 40 MG TAB PO SCH (07:58)
[2019-11-28] MEDS: ATORVASTATIN 10 MG TAB PO SCH (07:58)
[2019-11-28] MEDS: ENOXAPARIN INJ 40 MG/0.4 ML SYR SQ SCH (07:58)
[2019-11-28] MEDS: AMPICILLIN/SULBACTAM SOD 3,000 MG in 0.9 % SODIUM CHLORIDE 100 ML IV SCH ×3 (10:30→21:36)
--- NOTE | 2019-11-28 14:06 | Hospitalist Progress Note ---
Date of Service November 28, 2019 Assessment & Plan (1) Cellulitis of leg, right: Admitted with right leg swelling, redness and tenderness Noted to have a skin breach involving anterior mid stevenson area Remains locally tender and warmth on palpation Regional adenopathy with increasing white count 1 dose of ceftriaxone and 1 dose of vancomycin Antibiotic changed to intravenous Unasyn Ultrasound did not show any evidence of deep venous thrombosis Elevate the leg Increase ambulation Likely discharge home tomorrow (2) SIRS (systemic inflammatory response syndrome): Due to right leg cellulitis Expected to improve Admission and Anticipated Discharge Date Admission Date: November 27, 2019 Subjective The patient was seen and examined in medical floor He is a 69-year-old obese male without significant past medical history was admitted with right lower extremity swelling and erythema Right lower extremity remains swelled with increasing redness and tenderness on palpation Denies any other symptoms Review of Systems Review of Systems: All systems reviewed and are unremarkable except as noted below Musculoskeletal: Right leg pain and swelling Physical Exam Physical Exam: Lying in bed comfortably but anxious Constitutional: well developed, well nourished and + obese; no acute distress and not ill appearing Eyes: PERRL, conjunctivae normal, anicteric sclerae ENMT: external ear and nose normal, oropharynx normal Neck: trachea midline, no thyromegaly Respiratory: normal respiratory effort; no respiratory distress Auscultation: lungs clear to auscultation bilaterally Cardiovascular: Rate/Rhythm: regular rate and regular rhythm Heart Sounds: no murmur Gastrointestinal (Abdomen): Inspection/Auscultation: abdomen normal to inspection and normal bowel sounds; abdomen not distended Percussion/Palpation: abdomen soft; abdomen nontender Musculoskeletal: Left lower extremity swelled especially below knee. A small wound noted anteriorly at the mid stevenson level with minimal swelling and redness without any abscess Neurologic: moves all extremities; no focal motor deficits Alert awake and oriented x3, Lymphatic: no cervical or axillary lymphadenopathy Results & Data Results & [facility] ([facility]) Vital Signs (Past 12 Hours) Vital Signs Temp Pulse Resp BP Pulse Ox 11/28/19 06:55 36.7 C 93 H 18 134/81 94 Laboratory Results Short CBC 11/27/19 Range/Units 22:06 WBC 15.20 H (4.8-10.8) K/uL Hgb 14.2 (14.0-18.0) g/dL Hct 43.2 (42-52) % Plt Count 178 (130-400) K/uL BMP 11/27/19 22:06 Sodium 138 Potassium 3.7 Chloride 104 Carbon Dioxide 29 BUN 14 Creatinine 1.18 Glucose 111 H Calcium 8.8 Liver Function 11/27/19 Range/Units 22:06 Total Bilirubin 0.9 (0.2-1) mg/dl AST 12 L (15-37) U/L ALT 20 (12-78) U/L Alkaline Phosphatase 72 (45-117) U/L Albumin 3.6 (3.4-5.0) gm/dl Medications Administered Current Inpatient Medications Acetaminophen (Tylenol) 650 mg PO Q4H PRN PRN Reason: pain/fever Stop: 12/28/19 00:18 Atorvastatin Calcium (Lipitor) 10 mg PO DAILY [facility] Stop: 12/28/19 08:59 Last Admin: 11/28/19 07:58 Dose: 10 mg Documented by: Enoxaparin Sodium (Lovenox) 40 mg SQ Q24H [facility] Stop: 12/28/19 08:59 Last Admin: 11/28/19 07:58 Dose: 40 mg Documented by: Sodium Chloride (Nss 1000ml) 1,000 mls @ 80 mls/hr IV .[id number] [facility] Stop: 11/28/19 16:00 Last Admin: 11/28/19 13:59 Dose: 80 mls/hr Documented by: Ampicillin Sodium/Sulbactam Sodium 3,000 mg/ Sodium Chloride 108 mls @ 200 mls/hr IV Q6H [facility]; Protocol Stop: 12/05/19 09:59 Last Infusion: 11/28/19 11:05 Dose: Infused Documented by: Ondansetron HCl (Zofran) 4 mg IV Q6H PRN PRN Reason: Nausea Stop: 12/28/19 00:18 Oxycodone HCl (Roxicodone Immediate Rel) 5 mg PO Q6H PRN PRN Reason: Pain Stop: 12/12/19 00:18 Last Admin: 11/28/19 03:33 Dose: 5 mg Documented by: Pantoprazole Sodium (Protonix) 40 mg PO QAM [facility] Stop: 12/28/19 08:59 Last Admin: 11/28/19 07:58 Dose: 40 mg Documented by: Polyethylene Glycol (Miralax Powder Packet) 17 gm PO DAILY PRN PRN Reason: Constipation Stop: 12/28/19 00:18
[2019-11-28] MEDS: ACETAMINOPHEN 325 MG TAB PO PRN (16:51)
[2019-11-29] MEDS: AMPICILLIN/SULBACTAM SOD 3,000 MG in 0.9 % SODIUM CHLORIDE 100 ML IV SCH ×2 (03:49→10:17)
[2019-11-29] MEDS: ENOXAPARIN INJ 40 MG/0.4 ML SYR SQ SCH (08:13)
[2019-11-29] MEDS: ATORVASTATIN 10 MG TAB PO SCH (08:13)
[2019-11-29] MEDS: PANTOprazole 40 MG TAB PO SCH (08:13)
[2019-11-29] MEDS: ACETAMINOPHEN 325 MG TAB PO PRN (08:15)
[2019-11-29 08:51] LABS: Basophils # (auto) 0.01 K/uL (0-0.2); Basophils % (auto) 0.1 %; Eosinophils # (auto) 0.18 K/uL (0-0.5); Eosinophils % (auto) 1.5 %; Hematocrit (blood only) 38.7 % (42-52); Immature Granulocytes # (auto) 0.03 K/uL (0.00-0.02); Immature Granulocytes % (auto) 0.2 %; Lymphocytes # (auto) 1.12 K/uL (1.2-3.4); Mean Corpuscular Hemoglobin 30.3 pg (25-34); Mean Corpuscular Hgb Conc 33.6 g/dL (32-36); Mean Corpuscular Volume 90.2 fL (80-100); Mean Platelet Volume 10.8 fL (7.4-10.4); Monocytes # (auto) 1.02 K/uL (0.11-0.59); Monocytes % (auto) 8.2 %; Neutrophils # (auto) 10.05 K/uL (1.4-6.5); Platelet Count 142 K/uL (130-400); RDW Coefficient of Variation 13.1 % (11.5-14.5); RDW Standard Deviation 43.1 fL (36.4-46.3); Red Blood Count 4.29 M/uL (4.7-6.1); White Blood Count 12.41 K/uL (4.8-10.8)
--- NOTE | 2019-11-29 13:52 | Hospitalist Progress Note ---
Date of Service November 29, 2019 Assessment & Plan (1) Cellulitis of leg, right: Admitted with right leg swelling, redness and tenderness Noted to have a skin breach involving anterior mid stevenson area Remains locally tender and warmth on palpation Regional adenopathy with increasing white count 1 dose of ceftriaxone and 1 dose of vancomycin Antibiotic changed to intravenous Unasyn Ultrasound did not show any evidence of deep venous thrombosis The right leg is much improved He has been ambulating without any difficulties No fever and or chills and white count has decreased to almost normal Will be discharged home this afternoon-we will get Augmentin to finish the course of 10 days (2) SIRS (systemic inflammatory response syndrome): Due to right leg cellulitis Expected to improve Admission and Anticipated Discharge Date Admission Date: November 27, 2019 Subjective The patient was seen and examined in medical floor He is a 69-year-old obese male without significant past medical history was admitted with right lower extremity swelling and erythema Right lower extremity remains swelled with increasing redness and tenderness on palpation Denies any other symptoms 11/29/2019 The patient was seen and examined in medical floor His leg is less swollen today, less red and less tender Denies any fever and/or chills and pain is much improved He has been ambulating in the hallways without any symptoms Review of Systems Review of Systems: All systems reviewed and are unremarkable except as noted below Musculoskeletal: Right leg pain and swelling Physical Exam Physical Exam: Lying in bed comfortably but anxious Constitutional: well developed, well nourished and + obese; no acute distress and not ill appearing Eyes: PERRL, conjunctivae normal, anicteric sclerae ENMT: external ear and nose normal, oropharynx normal Neck: trachea midline, no thyromegaly Respiratory: normal respiratory effort; no respiratory distress Auscultation: lungs clear to auscultation bilaterally Cardiovascular: Rate/Rhythm: regular rate and regular rhythm Heart Sounds: no murmur Gastrointestinal (Abdomen): Inspection/Auscultation: abdomen normal to inspect ion and normal bowel sounds; abdomen not distended Percussion/Palpation: abdomen soft; abdomen nontender Musculoskeletal: The right leg is swollen but with decreased redness and tenderness. The skin wound at the mid stevenson has improved a lot Neurologic: moves all extremities; no focal motor deficits Lymphatic: no cervical or axillary lymphadenopathy Results & Data Results & Data ([facility]) Vital Signs (Past 12 Hours) Vital Signs Temp Pulse Resp BP Pulse Ox 11/29/19 07:32 36.7 C 96 H 18 164/90 H 90 Laboratory Results Short CBC 11/29/19 Range/Units 08:26 WBC 12.41 H (4.8-10.8) K/uL Hgb 13.0 L (14.0-18.0) g/dL Hct 38.7 L (42-52) % Plt Count 142 (130-400) K/uL Medications Administered Current Inpatient Medications Acetaminophen (Tylenol) 650 mg PO Q4H PRN PRN Reason: pain/fever Stop: 12/28/19 00:18 Last Admin: 11/29/19 08:15 Dose: 650 mg Documented by: Atorvastatin Calcium (Lipitor) 10 mg PO DAILY [facility] Stop: 12/28/19 08:59 Last Admin: 11/29/19 08:13 Dose: 10 mg Documented by: Enoxaparin Sodium (Lovenox) 40 mg SQ Q24H [facility] Stop: 12/28/19 08:59 Last Admin: 11/29/19 08:13 Dose: 40 mg Documented by: Ampicillin Sodium/Sulbactam Sodium 3,000 mg/ Sodium Chloride 108 mls @ 200 mls/hr IV Q6H [facility]; Protocol Stop: 12/05/19 09:59 Last Infusion: 11/29/19 10:50 Dose: Infused Documented by: Ondansetron HCl (Zofran) 4 mg IV Q6H PRN PRN Reason: Nausea Stop: 12/28/19 00:18 Oxycodone HCl (Roxicodone Immediate Rel) 5 mg PO Q6H PRN PRN Reason: Pain Stop: 12/12/19 00:18 Last Admin: 11/28/19 03:33 Dose: 5 mg Documented by: Pantoprazole Sodium (Protonix) 40 mg PO QAM [facility] Stop: 12/28/19 08:59 Last Admin: 11/29/19 08:13 Dose: 40 mg Documented by: Polyethylene Glycol (Miralax Powder Packet) 17 gm PO DAILY PRN PRN Reason: Constipation Stop: 12/28/19 00:18
[2019-11-29] MEDS ORDERED: AMOXICILLIN/CLAVULANATE 875 MG TAB PO SCH (17:00)
--- NOTE | 2019-11-30 09:42 | Discharge Summary ---
Date of Service November 30, 2019 Admission HPI Per Admitting Provider DICTATED BY: Dm Cook MD DATE OF ADMISSION: 11/27/2019 CHIEF COMPLAINT: Right lower extremity cellulitis. HISTORY OF PRESENT ILLNESS: This is a 69-year-old male with past medical history significant for hyperlipidemia, GERD, history of diverticulosis of colon, rosacea, who presents with right lower extremity swelling and erythema. Patient says since last Thursday he noticed some erythema and swelling in the right lower extremity which got progressively worse. There is a scratch superficial wound seen on the right stevenson.But today pain got severe and he also developed fever which prompted him to come to the ER. He is having a spiking temperature and elevated white count meeting Sirs criteria. He was given vancomycin in the ER. Currently resting comfortably and hemodynamically stable. He says he was able to walk on the leg. Denies any cough. No chest pain, no shortness of breath, no loss of sense of smell or taste. No headache, no blurred visions, no earache, no runny nose, no sore throat, no dysphagia. Appetite is okay. The patient says he had 4 days of diarrhea since last Thursday, but that got resolved. No abdominal pain now. Denies any blood in the stools. Normal bladder movements. Denies any tick bites. Admission Exam Per Admitting Provider GENERAL: The patient is of moderate build, not in acute distress. VITAL SIGNS: Temperature T-max 37.9, pulse 103, respiratory rate 16, blood pressure 145/98, oxygen 94% on room air. HEENT: No pallor, no icterus. NECK: No JVD, no neck masses, no carotid bruit. Oral mucosa dry. CARDIOVASCULAR: S1, S2 heard, regular rate and rhythm, no murmur, no gallop. RESPIRATORY SYSTEM: Normal AP diameter. No accessory muscle use. No wheezing, no crackles. ABDOMEN: Soft, bowel sounds present, nontender. No distention. CENTRAL NERVOUS SYSTEM: Cranial nerves II-XII grossly intact. Nonfocal. EXTREMITIES: Right lower extremity is mildly swollen, erythematous and warm to touch. Principal Diagnosis Cellulitis of right leg Discharge Exam Constitutional well developed, well nourished and + obese; no acute distress and not ill appearing Eyes PERRL, conjunctivae normal, anicteric sclerae ENMT external ear and nose normal, oropharynx normal Neck trachea midline, no thyromegaly Respiratory normal respiratory effort; no respiratory distress Auscultation: lungs clear to auscultation bilaterally Cardiovascular Rate/Rhythm: regular rate and regular rhythm Heart Sounds: no murmur Gastrointestinal (Abdomen) Inspection/Auscultation: abdomen normal to inspection and normal bowel sounds; abdomen not distended Percussion/Palpation: abdomen soft; abdomen nontender Neurologic moves all extremities; no focal motor deficits Lymphatic no cervical or axillary lymphadenopathy Discharge Data Allergies Allergy/AdvReac Type Severity Reaction Status Date / Time chlorhexidine Allergy Unknown RASH Verified 11/27/19 22:29 Consultations 11/27/19 22:59 ED Decision to Admit Stat 11/28/19 00:19 Consult Case Management - Discharge Planning Routine Ordered Studies 11/28/19 01:00 US venous doppler LE RT Routine Hospital Course (1) Cellulitis of leg, right: Admitted with right leg swelling, redness and tenderness Noted to have a skin breach involving anterior mid stevenson area Remains locally tender and warmth on palpation Regional adenopathy with increasing white count 1 dose of ceftriaxone and 1 dose of vancomycin Antibiotic changed to intravenous Unasyn Ultrasound did not show any evidence of deep venous thrombosis The right leg is much improved He has been ambulating without any difficulties No fever and or chills and white count has decreased to almost normal Will be discharged home this afternoon-we will get Augmentin to finish the course of 10 days (2) SIRS (systemic inflammatory response syndrome): Due to right leg cellulitis Expected to improve Total Time Total Time Spent Total Time Spent (In Minutes): 35 minutes Total Time Includes: Examination of the Patient, Discharge Planning, Medication Reconciliation and Communication With Other Providers Discharge Plan Discharge Items Patient Disposition: Home - Self-Care Reason For Visit: CELLULITIS Discharge Diagnosis: Cellulitis of right leg Condition on Discharge: Good Activity: Resume your previous activity Non-emergency contact: Primary Care Provider Call non-emergency contact if: you have any medication questions and your symptoms worsen Follow-up/Referrals: Henri Kim MD [Outside Practitioners] - 12/02/19 12:20 pm (12/02/2019 12:20 PM Provider Klaus Diehl MD [facility] ) Diet: Heart Healthy Addtl Attending Provider Instructions: Try to keep your right leg elevated while in bed Try ibuprofen/Motrin 600 mg 3 times daily with food for control of pain Pending Studies at Discharge: No Stand-Alone Forms: My [facility], Smoking Cessation Medications and DC Order Prescriptions: New amoxicillin-pot clavulanate [Augmentin] 875-125 mg Tablet 1 tab PO BIDM 7 Days Qty: 14 RF: 0 Lactinex 1 million cell tablet,chewable 1 tab PO TID Qty: 30 RF: 0 Continued atorvastatin 10 mg tablet 10 mg PO DAILY RF: 0 omeprazole magnesium [Prilosec OTC] 20 mg Tablet,Delayed Release (Dr/Ec) 20 mg PO QAM RF: 0 Discharge Orders: Discharge Order (Routine); Ordered 11/29/19 Ordered By: Anjnaa Patten Admission Data Admit Date/Time: 11/27/19 23:30 Attending Provider: Anjana Patten Admit Provider: Dm Cook Primary Care Provider: PCP,NO Other Providers: Dm Cook Other Interventions: Discharge Summary Assessment (RN) Last Done: 11/29/19 15:22 DC Date/Time DO NOT enter until pt leaves facility: 11/29/19 16:05
== END 2019-11-29 16:05 | disposition home or self-care (01) ==
LOC: ED 21:19 → INTOOBSV 23:30 → 2N 23:30